=== PATIENT | female | born 1960 | race Caucasian/White ===

== ENCOUNTER 2024-12-04 16:29 | Emergency (ER) | payer OTHER, SELFPAY ==
--- OUTSIDE RECORDS SUMMARY | 2024-12-04 16:33 | XMS_ITS | Continuity of Care Document ---
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 Medication Details Route Status Patient Instructions Prescription Expires Prescription Number Last Dispense Date Ordering Provider Order Date Order Qty Source ALLOPURINOL (allopurino l), 300 MG, TABLET, ORAL, [facility], 500 ea. BOTTLE Active [id number] 2023 90 Pharmac y Data Transac tion Service Facilit y AMPHETAMINE SALT COMBO (DEXTROAMPH ETAMINE/AMP HETAMINE), 20 MG, TABLET, ORAL, LONG, 100 ea. BOTTLE Cancele d [id number] : 2023 0 Pharmac y Data Transac tion Service Facilit y AMPHETAMINE SALT COMBO (DEXTROAMPH ETAMINE/AMP HETAMINE), 20 MG, TABLET, ORAL, LONG, 100 ea. BOTTLE Active [id number] 2023 30 Pharmac y Data Transac tion Service Facilit y AMPHETAMINE SALT COMBO (DEXTROAMPH ETAMINE/AMP HETAMINE), 5 MG, TABLET, ORAL, LONG, 100 ea. BOTTLE Active [id number] 2023 120 Pharmac y Data Transac tion Service Facilit y CLONAZEPAM (clonazepam ), 0.5 MG, TABLET, ORAL, [facility], 100 ea. BOTTLE Active [id number] 2023 60 Pharmac y Data Transac tion Service Facilit y CLONAZEPAM (clonazepam ), 0.5 MG, TABLET, ORAL, [facility], 100 ea. BOTTLE Active [id number] 2023 60 Pharmac y Data Transac tion Service Facilit y CLONAZEPAM (clonazepam ), 0.5 MG, TABLET, ORAL, [facility], 1000 ea. BOTTLE Active [id number] 2023 60 Pharmac y Data Transac tion Service Facilit y CLONAZEPAM (CLONAZEPAM ), 0.5MG, TABLET, ORAL, [employer] [place], 500 ea. BOTTLE Active [id number] 2023 60 Pharmac y Data Transac tion Service Facilit y CLONAZEPAM (CLONAZEPAM ), 0.5MG, TABLET, ORAL, [employer] [place], 500 ea. BOTTLE Active [id number] 2023 60 Pharmac y Data Transac tion Service Facilit y CLONAZEPAM (CLONAZEPAM ), 0.5MG, TABLET, ORAL, [employer] [place], 500 ea. BOTTLE Active [id number] 3 2022 60 Pharmac y Data Transac tion Service Facilit y DESVENLAFAX INE SUCCINATE ER (desvenlafa xine succinate), 100 MG, TAB ER 24H, ORAL, [facility] IKMA, 90 ea. BOTTLE Active [id number] 2023 90 Pharmac y Data Transac tion Service Facilit y DESVENLAFAX INE SUCCINATE ER (desvenlafa xine succinate), 100 MG, TAB ER 24H, ORAL, [facility]/ IKMA, 90 ea. BOTTLE Active [id number] 4 2023 90 Pharmac y Data Transac tion Service Facilit y FLUOXETINE HCL (FLUOXETINE HCL), 20MG, CAPSULE, ORAL, [employer], 100 ea. BOTTLE Cancele d [id number] : 2023 0 Pharmac y Data Transac tion Service Facilit y FLUOXETINE HCL (FLUOXETINE HCL), 20MG, CAPSULE, ORAL, [employer], 100 ea. BOTTLE Active [id number] 2023 10 Pharmac y Data Transac tion Service Facilit y FLUOXETINE HCL (FLUOXETINE HCL), 20MG, CAPSULE, ORAL, [employer], 100 ea. BOTTLE Cancele d [id number] : 2023 0 Pharmac y Data Transac tion Service Facilit y FLUOXETINE HCL (FLUOXETINE HCL), 40MG, CAPSULE, ORAL, [employer] [place], 100 ea. BOTTLE Active [id number] 4 2023 180 Pharmac y Data Transac tion Service Facilit y FLUOXETINE HCL (FLUOXETINE HCL), 40MG, CAPSULE, ORAL, [employer] [place], 100 ea. BOTTLE Active [id number] 4 2023 180 Pharmac y Data Transac tion Service Facilit y METOPROLOL SUCCINATE (metoprolol succinate), 25 MG, TAB ER 24H, ORAL, [employer]/TEV A, 100 ea. 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 Social History Type Response Date Comment [facility] e This section is an empty social history section. [employer]
--- OUTSIDE RECORDS SUMMARY | 2024-12-04 16:33 | XMS_ITS | Clinical Summary ---
Author Organization [facility] Address [place], [place] [address] Care Team Providers Care Art Objects Repairer Name Role Phone Zuleyma Villanueva DO Primary Care Provider [phone] February BASKET SORTER Unavailable Allergies Active Allergy Reactions Criticality Noted Date Comments Prochlorperazine Anxiety High 02/25/2017 feels like I am jumping out of my skin. Medications OneTouch Verio test strips stripIndications: Type 2 diabetes mellitus without complication, without long-term current use of insulin (HC) One times daily. 200 Each 12/10/19 22 Active CPAPIndications:O bstructive sleep apnea syndrome CPAP (E0601) machine for home use at pressure: 16 cmH2O, Choice of mask (A7030 or A7034) w/full face cushion (A7031) x1/mo, nasal cushion (A7032) x2/mo, or nasal pillows (A7033) x 2/mo; Heated humidifier (E0562) x 1/5 year, Humidifier chamber (A7046) x 1/6mo, Chinstrap (A7036) x 1/6mo, Heated tubing (A4604) x 1/3mo, Headgear (A7035) x 1/6mo, Filters: Disposable (A7038) x 2pk/1mo & Reusable (A7039) x 1pk/6mo; Length of Need: 99 months; Frequency of use: Daily DME: [employer] PLEASE CHANGE PRESSURE TO 16 1 Each 06/21/20 24 Active allopurinoL (ZYLOPRIM) 300 mg tabletIndications :Gout, unspecified cause, unspecified chronicity, unspecified site Take 1 Tablet (300 mg) by mouth once daily. 90 Tablet 3 06/29/20 24 Active nicotine 21 mg/24 hr (NICODERM; HABITROL) 21 mg/24 hr patchIndications: Tobacco dependence with current use Apply 1 Patch on dry, clean, hairless skin once daily. 14 Patch 3 06/29/20 24 Active clonazePAM (KLONOPIN) 0.5 mg tabletIndications :PTSD (post-traumatic stress disorder),MING (generalized anxiety disorder) Take 1-2 Tablets (0.5-1 mg) by mouth 2 times daily if needed for Anxiety. 90 Tablet 1 11/11/20 24 Active Vyvanse 50 mg capsuleIndication s:Attention deficit hyperactivity disorder (ADHD), unspecified ADHD type Take 1 Capsule (50 mg) by mouth once daily in the morning. 31 Capsule 11/23/19 25 Active Vyvanse 40 mg capsuleIndication s:Attention deficit hyperactivity disorder (ADHD), unspecified ADHD type Take 1 Capsule (40 mg) by mouth once daily in the morning. 31 Capsule 10/12/20 24 025 Discontin ued(*Sandi ent states no longer taking) clonazePAM (KLONOPIN) 0.5 mg tabletIndications :Severe episode of recurrent major depressive disorder, without psychotic features (HC) Take 1-2 Tablets (0.5-1 mg) by mouth at bedtime. 60 Tablet 2 10/13/20 24 024 Discontin ued(*Medi cation adjustmen t) lisdexamfetamine (Vyvanse) 50 mg capsuleIndication s:Attention deficit hyperactivity disorder (ADHD), unspecified ADHD type Take 1 Capsule (50 mg) by mouth once daily in the morning. 31 Capsule 11/11/20 24 025 Discontin ued(*Medi cation adjustmen t) Active Problems Problem Noted Date Diagnosed Date Stage 3b chronic kidney disease 06/01/2024 Dermatochalasis of both lower eyelids 02/05/2022 Hyperopia of both eyes with astigmatism and pres byopia 02/05/2022 Controlled type 2 diabetes m ellitus without complication, without long-term current use of insulin 02/05/2022 Gout 01/28/2022 Severe recurrent major depre ssion without psychotic features 09/26/2020 MING (generalized anxiety disorder) 09/26/2020 PTSD (post-traumatic stress disorder) 09/26/2020 Major depression, recurrent 10/27/2018 Chronic pain associated with significant psychosocial dysfunction 10/27/2018 Lightheaded 02/13/2018 Overview (02/13/2018): From hospitalization in [place]: The patient complained of lightheadedness which was initially thought to be potentially related to medications but with time appeared to have some psychosomatic component. She complained less about this overtime and with an improvement in her mood. Chronic sinusitis of both maxillary sinuses 06/2018 Sarcoidosis 12/03/2017 Insomnia 12/03/2017 DODIE (obstructive sleep apnea) 12/03/2017 Hypertension 12/03/2017 Overview (02/13/2018): Very salt sensitive- blood pressure up with more salt Obesity 12/03/2017 Diabetes mellitus, type 2 10/31/2017 Attention deficit disorder without mention of hy peractivity 06/24/2009 Major depressive disorder, recurrent episode, mo derate Resolved Problems Problem Noted Date Diagnosed Date Resolved Date CKD (chronic kidney disease) stage 3, GFR 30-59 ml/min 01/28/2022 06/01/2024 Overview (01/28/2022): Nephrology Major depression, recurrent 05/11/2018 05/11/2018 Major depressive disorder, recurrent 12/03/2017 05/11/2018 GERD (gastroesophageal reflux disease) 12/03/2017 06/08/2021 Depression 11/01/2016 05/11/2018 Anxiety state, unspecified 06/09/2009 0 06/08/2021 Overview (06/09/2009): Evaluate ADD pattern Encounters Date Type Department Care Team Description 12/01/2024 10:30 AM CDA TEACHER Office Visit [facility] [address] [facility] [address] [place] [address] Elis Olea NP Consult; Medication Management 12/01/2024 Travel 11/26/2024 Telephone [facility] [address] [place] [phone] Checo February Noel, BASKET SORTER Questions 11/26/2024 Telephone [facility] [address] [place] [address] Checo February Noel, BASKET SORTER Error-please disregard 11/26/2024 Telephone [facility] [address] [place] [address] Zuleyma Villanueva, DO Questions (blood pressure cuff readings) 11/23/2024 3:30 PM CDA TEACHER Telemedicine [facility] [address] [facility] [address] [place] [address] Checo February Noel, BASKET SORTER Follow Up 11/19/2024 Telephone [facility] [address] [facility] [address] [place] [address] Checo February Noel, BASKET SORTER Error-please disregard 11/18/2024 Telephone [facility] [address] [facility] [address] [place] [address] Elis Olea, BASKET SORTER Concerns 11/16/2024 Telephone [facility] [address] [facility] [place] [address] [facility] [address] [place] [phone] Checo February Noel, BASKET SORTER Prior Authorization (lisdexamfetamine (Vyvanse) 50 mg capsule-PA NOT NEEDED) 11/16/2024 Telephone [facility] [address] [place] [address] Kia Coreas, JUANI Testing 11/12/2024 Telephone [facility] [address] [place] [address] Zuleyma Villanueva, Concerns 11/11/2024 4:30 PM CDA TEACHER Telemedicine [facility] [address] [facility] [address] [place] [address] Checo February Noel, BASKET SORTER Medication Management; Telehealth ([place]) 11/02/2024 Telephone [facility] [address] [place] [address] Zuleyma Villanueva, Referral ([place]) 11/02/[address]24 [address] [facility] [address] [facility] [place] [address] [place] [phone] Tawana Kessler, BASKET SORTER Appointment (Follow Up ) 10/26/2024 Telephone [facility] [place] [place] [address] [place] [address] Yris Bowman MD Form (PHYSICIAN ORDER) 10/20/2024 3:00 PM CDA TEACHER Office Visit [facility] [place] [place] [address] [place] [address] Yris Bowman MD Back Pain (Back, neck and shoulder pain x years, would like physical therapy ); Consult (Itching in hands and feet, loss of sensation, was told it could be from nerve damage and needs a referral to neurology ); Immunization/Injection 10/20/2024 Telephone [facility] [place] [address] [place] [phone] Jose Elias Lyon MD NEURO REFERRAL 10/20/2024 Travel 10/18/2024 Telephone [facility] [address] [place] [address] Zuleyma Villanueva, Referral (Chronic pain and neurology) 10/12/2024 3:30 PM CDA TEACHER Telemedicine [facility] [address] [facility] [address] [place] [phone] Tawana Kessler, AYDIN Medication Management; Telehealth ([place]) 10/12/2024 Telephone [facility] [address] [facility] [address] [place] [address] Elis Olea NP Appointment 10/11/2024 Travel 10/11/2024 Telephone [facility] [address] [place] [address] Zuleyma Villanueva, DO Questions (PENSION FUND MANAGER) 09/08/2024 Telephone [facility] [place] [phone] [place] [address] Kia Coreas PA Appointment 09/06/2024 Telephone [facility] [place] [address] [place] [phone] Kia Coreas PA Appointment (Appointment was scheduled) from Last 3 Months Immunizations Name Administration Dates Next Due COVID-19 VACCINE SPIKEVAX (M ODERNA 50MCG/0.5ML) 12YO+ PFS 10/20/2024 COVID-19 vaccine (Pfizer-Bio NTech 30mcg/0.3mL) 12YO+ BIVALENT PF, MDV 02/12/2023 INFLUENZA, IIV3 PF (AGE >= 6 MO) 10/20/2024 Influenza, IIV3 (Age 6-35 mos) 10/31/2009 Influenza, IIV3 (Age >=3 years) 10/02/2011,01/11 Influenza, IIV4 02/12/2023, 0,11/30/2017,2015,08/23/2014 Pneumococcal Conj 20-valent (Prevnar 20) 05/21/2023 Pneumococcal Poly,23-Valent (Pneumovax) 11/02/2016 Td (Age >=7 Years) 09/06/2020 Tdap 01/11/2008 Tuberculin (PPD) 12/19/2017 Zoster (Zostavax-ZVL, live) 12/15/2014 Family History Medical History Relation Name Comments Anxiety disorder Other Depression Other All seven of he r siblings have depression and anxiety. Cancer-breast Sister No Known Problems Son Relation Name Status Comments Other Alive Sister Son Alive Social History Tobacco Use Types Packs/Day Years Used Date Smoking Tobacco: Every Day Cigarettes 0.3 20.6 Started: 03/16/1998; Last attempted to quit: 03/16/2018 Smokeless Tobacco: Never Tobacco Cessation:Ready to Q uit: Not Asked; Counseling Given: Not Answered Alcohol Use Standard Drinks/Week Comments No 0 (1 standard drink = 0.6 oz pur e alcohol) PHQ-2 Answer Date Recorded PHQ-2 TOTAL SCORE 1 10/11/2024 Social Connections Answer Date Recorded Do you often feel lonely or isolated from those around you? 4 06/01/2024 Financial Resource Strain Answer Date R ecorded Difficulty of Paying Living Expenses 3 06/01/2024 Difficulty of Paying Living Expenses Not on file 06/01/2024 Food Insecurity Answer Date Recorded Do you worry your food will run out before you are able to buy more? 2 06/01/2024 Transportation Needs Answer Date Record ed Does lack of transportation keep you from medica l appointments? 1 06/01/2024 Does lack of transportation keep you from work, meetings or getting things that you need? 1 06/01/2024 Housing Stability Answer Date Recorded What is your housing situation today? 1 06/01/2024 Utilities Answer Date Recorded Do you have trouble paying f or utilities (for example, heat, electricity, water, phone)? 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 Not on file Not on thais e Not on file Obstetrics History Last Filed Vital Signs Vital Sign Reading Time Taken Comments Blood Pressure 122/80 12/01/2024 10:41 AM CDA TEACHER Pulse 100 12/01/2024 10:41 AM CDA TEACHER Temperature 36.7 C (98.1 F) 05/17/2021 10:33 AM CDT Respiratory Rate 18 02/03/2018 8:00 AM CDT Oxygen Saturation 100% 10/20/2024 2:55 PM CDA TEACHER Inhaled Oxygen Concentration - - Weight 96 kg (211 lb 9.6 oz) 12/01/2024 10:41 AM CDA TEACHER shoes Height 174 cm (5' 8.5) 06/29/2024 10:22 AM CDT Body Mass Index 31.7 06/29/2024 10:22 AM CDT Plan of Treatment Upcoming Encounters Date Type Department Care Team (Late st Contact Info) Description 12/09/2024 8:30 AM CDA TEACHER Telemedicine [facility] [address] [place] [phone] Tawana Kessler D, BASKET SORTER [address] [place], [place] [phone] 12/28/2024 10:10 AM CDA TEACHER Office Visit [facility] [address] [place] [address] Zuleyma Villanueva DO [address] [place] [address] 01/11/2025 1:00 PM CDA TEACHER Office Visit [facility] [place] [facility] [address] [place] [address] Jose Elias Lyon MD [address] [place] [address] 11/29/2025 12:30 PM CDA TEACHER Office Visit [facility] [address] [phone] Elis Olea NP [address] [phone] Health Maintenance Due Date Last Done Comments HIV for age 15-65 1975 Fecal testing sDNA-FIT ([place] guard) for age 45-75 2005 Zoster (shingles) series for age 50+ (2 of 3) 02/09/2015 12/15/2014 RSV vaccine for adults or (1 - Risk 60-74 years 1-dose series) 2020 Mammogram for age 45-75 10/07/2023 10/07/20 22, 06/08/2021, 10/22/2017 Pap test for age 21-65 05/17/2024 05/17/2021, 2020 BMI (ht and wt on same day) for age 18+ 06/29/2025 06/29/2024, 06/27/2023, 06/08/2021, Additional history exists Depression screening for age 12+ 10/12/2025 10/12/2024, 10/12/2024, 10/11/2024, Additional history exists Lipids for age 45-75 10/20/2029 10/20/2024, 06/01/2024, 02/05/2023, Additional history exists Tetanus booster 09/06/2030 09/06/2020, 01/11/2008 Tdap Completed 01/11/2008 Hepatitis C screening for ag e 18-79 Completed 09/06/2020 Pneumococcal series for age 50+ Completed 3, 11/02/2016 COVID-19 vaccine series Completed 10/20/20, 02/12/2023, 02/28/2021, Additional history exists Influenza for age 50-64 Completed 10/20/20, 02/12/2023, 09/06/2020, Additional history exists Goals Goal Patient Goal Type Associated Problems Recent Progress Patient-Stated? Author BLOOD PRESSURE-MAINTA INS BP LESS THAN 130/80 Blood Pressure No Rj Graham MD BLOOD PRESSURE - MAINTAINS BP less than 140/90 Blood Pressure No Rj Graham MD Procedures Procedure Name Priority Date/Time Associated Diagnosis Comments CREATININE Routine 10/20/2024 3:34 PM CDA TEACHER Stage 3b chronic kidney disease (HC) FOLIC ACID Routine 10/20/2024 3:34 PM CDA TEACHER Low folic acid LIPID PANEL W REFLEX MEASURED LDL Routine 10/20/2024 3:33 PM CDA TEACHER Mixed hyperlipidemia XR MAMMO BEAU BILAT DIAG Routine 10/07/2022 2:57 PM CDA TEACHER Mastalgia Encounter for screening mammogram for malignant neoplasm of breast PRODUCTION FLOATER THIN PREP PAP SCREEN IMAGED Routine 05/17/2021 11:04 AM CDT Screening for cervical cancer ANTI HCV Routine 09/06/2020 1:47 PM CDT Need for hepatitis C screening test from Last 3 Months or Most Recently Relevant to Health Maintenance Results * CREATININE (10/20/2024 3:34 PM CDA TEACHER) CREATININE 0.99 0.50 - 1.05 mg/dL [facility] EGFR 64 > OR = 60 mL/min/1.73 m2 [facility] Blood BLOOD SPECIMEN / Unknown 10/20/2024 3:34 PM CDA TEACHER 10/20/2024 3:34 PM CDA TEACHER Yris Bowman MD CHEMISTRY Final R esult Performing Organization Address City/[facility]/ZIP Co de Phone Number [facility] [address] [place] [address], [place] [phone] [facility] [address] [place] [address] * FOLIC ACID (10/20/2024 3:34 PM CDA TEACHER) Pathologist [facility] FOLATE, SERUM 5.9 ng/mL [facility] Comment: Reference Range Low: <3.4 Borderline: 3.4-5.4 Normal: >5.4 Blood BLOOD SPECIMEN / Unknown 10/20/2024 3:34 PM CDA TEACHER 10/20/2024 3:34 PM CDA TEACHER Yris Bowman MD CHEMISTRY Final R esult Performing Organization Address [facility] Co de Phone Number [facility] [address] [place] [address], [place] [phone] [facility] [address] [place] [address] * (ABNORMAL) LIPID PANEL W REFLEX MEASURED LDL (10/20/2024 3:33 PM CDA TEACHER) CHOLESTEROL, TOTAL 208(H) <200 mg/dL [facility] HDL CHOLESTEROL 69 > OR = 50 mg/dL [facility] TRIGLYCERIDES 66 <150 mg/dL [facility] LDL-CHOLESTEROL 123(H) mg/dL (calc) [facility] Comment: Reference range: <100 Desirable range <100 mg/dL for primary prevention; <70 mg/dL for patients with CHD or diabetic patients with > or = 2 CHD risk factors. LDL-C is now calculated using the Olaf-Dennis calculation, which is a validated novel method providing better accuracy than the Friedewald equation in the estimation of LDL-C. Olaf SS et al. DESIREE. 2013;310(19): 0422-6083 (http://education.mySkin/faq/IQH181) CHOL/HDLC RATIO 3.0 <5.0 (calc) [facility] NON HDL CHOLESTEROL 139(H) <130 mg/dL (calc) [facility] Comment: For patients with diabetes plus 1 major ASCVD risk factor, treating to a non-HDL-C goal of <100 mg/dL (LDL-C of <70 mg/dL) is considered a therapeutic option. Blood BLOOD SPECIMEN / Unknown 10/20/2024 3:33 PM CDA TEACHER 10/20/2024 3:33 PM CDA TEACHER Zuleyma Villanueva DO CHEMISTRY Final Result [facility] [address] [place] [address], [facility] [address] [place] [address] * XR MAMMO BEAU BILAT DIAG (10/07/2022 2:57 PM CDA TEACHER) Anatomical Region Laterality Modality BREASTS, Breast Left, Breast Right Bilateral Mammography 10/07/2022 3:10 PM CDA TEACHER Impressions 10/08/2022 11:51 AM CDA TEACHER Normal BILATERAL mammograms. No findings concerning for malignancy. RECOMMENDATION: Annual BILATERAL screening mammography. BI-RADS Category 1: Negative. Results and recommendations discussed with the patient. Dictated by: Kamron Ramirez MD @10/07/2022 3:10:33 PM CRL:rcd PATIENTS: You will also receive a letter with your examination results in an easy to read format. If you have questions about your results, please contact your referring provider. Narrative 10/08/2022 11:51 AM CDA TEACHER For Patients: As a result of the 21st Century Cures Act, medical imaging exams and procedure reports are released immediately into your electronic medical record. You may view this report before your referring provider. If you have questions, please contact your health care provider. BILATERAL DIGITAL DIAGNOSTIC MAMMOGRAM WITH COMPUTER-AIDED DETECTION AND TOMOSYNTHESIS, 10/07/2022 CLINICAL HISTORY: RIGHT breast pain. COMPARISON: 06/08/2021. TECHNIQUE: Digital BILATERAL mammogram in four projections with computer-aided detection and tomosynthesis. BREAST COMPOSITION: There are scattered areas of fibroglandular density. FINDINGS: 3D CC/MLO BILATERAL mammograms submitted. No suspicious masses are present. No adenopathy or architectural distortion. No suspicious calcifications. us Zuleyma Villanueva DO MAMMO Final Result * PRODUCTION FLOATER THIN PREP PAP SCREEN IMAGED [[id number]] (05/17/2021 11:04 AM CDT) Case Report Gynecologic Cytology Report Case: [id number] Authorizing Provider: Zuleyma Villanueva DO Collected: 05/17/2021 1104 Ordering Location: [facility] Received: 05/17/2021 1109 Clinic First Screen: Baccam, Minie Pathologist: Consuelo De La Paz MD Specimen: PRODUCTION FLOATER ThinPrep Vial Screening, Cervical 05/25/2021 4:59 PM CDT [facility] INTERPRETATION/ RESULT NEGATIVE FOR INTRAEPITHELIAL LESION OR MALIGNANCY (NIL) (none) 05/25/2021 4:59 PM CDT [facility] R NON-NEOPLASTIC FINDING(S) Reactive cellular changes associated with inflammation/repa ir 05/25/2021 4:59 PM CDT [facility] SPECIMEN ADEQUACY Satisfactory for evaluation No endocervical component seen 05/25/2021 4:59 PM CDT [facility] HPV REQUEST HPV and PAP 05/25/2021 4:59 PM CDT [facility] Date of LMP N/A 05/25/2021 4:59 PM CDT [facility] Last Pap Date Unknown 05/25/2021 4:59 PM CDT [facility] Last Pap Result First Pap/Unknown 4:59 PM CDT [facility] Abnormal Pap or Braham Bx in last 5 years No 05/25/2021 4:59 PM CDT [facility] Menstrual Status Postmenopausal 05/25/2021 4:59 PM CDT [facility] Braham Bx Done Today No 05/25/2021 4:59 PM CDT [facility] Additional Information None given 05/25/2021 4:59 PM CDT [facility] Comment: Cytology is screened at [facility] - [address], [place] [address] and [facility] - [address], [place] [address] and [facility] - [address] [place] [address] Interpreted at [facility] - [address], [place] [address] Automated Review Successful 05/25/2021 4:59 PM CDT [facility] Comment:Specimen processed s uccessfully by automated power plant manager device, ThinPrep Imaging System, [employer] ANCILLARY TESTING PRODUCTION FLOATER HPV Ordered, Please see separate report 05/25/2021 4:59 PM CDT [facility] Note The pap test is a screening technique, not a diagnostic procedure. It is used primarily to screen for squamous cancers and precursor lesions. Published studies have shown that it is subject to both false negative and false positive results. The pap test should not be used as the sole means to diagnose or exclude pre-malignant and malignant lesions. 05/25/2021 4:59 PM CDT [facility] Other (Cervical) Non-Blood / Unknown 05/17/2021 11:04 AM CDT 05/17/2021 11:09 AM CDT us Zuleyma Villanueva DO PATHOLOGY/CYTOLOGY Final Resu lt [facility] [address] [place] [address], [place] * ANTI HCV (09/06/2020 1:47 PM CDT) HEPATITIS C ANTIBODY Non-React susan Non-React susan 09/06/2020 8:14 PM CDT [facility] Comment:Antibodies to HCV no t detected; does not exclude the possibility of exposure to HCV. Blood BLOOD SPECIMEN / Unknown Butterfly / Unknown 09/06/2020 1:47 PM CDT 09/06/2020 1:47 PM CDT us Roshan Frank MD SEND OUTS Final Result [facility] [address] [place] [phone], from Last 3 Months or Most Recently Relevant to Health Maintenance Insurance MEDICARE [place] ONLY MEDICARE PART B HB ONLY FOR LIFE MEDICARE PART A HB ONLY MEDICARE PART B HB ONLY FOR LIFE Advance Directives * Full Code (Latest Code Status on File) Date Activated Date Inactivated Comments 01/15/2018 10:03 PM 02/03/2018 6:32 PM Question Answer Comments Code Status Discussion: Discussed * Full Code Date Activated Date Inactivated Comments 11/29/2017 3:07 PM 12/19/2017 4:43 PM Discussed Adv anced Directives. She would like a copy of it. Question Answer Comments Code Status Discussion: Discussed Care Teams Art Objects Repairer Relationship Specialty Start Date End Date Zuleyma Villanueva DO [address] [place] [address] PCP - General Family Practice 09/26/21 [place] Tawana AYDIN Cohen [address] [place] [address] Nurse Practitioner - Mental Health 05/02/22
--- OUTSIDE RECORDS SUMMARY | 2024-12-04 16:33 | XMS_ITS | Referral Summary ---
Author Organization [facility] Address [address] [place] [address] Care Team Providers Care Supervisor Intelligence Analyst Name Role Phone Hannah, Md Primary Care Provider Rj Ruffin MD Unavailable Unavailab le Allergies Active Allergy Reactions Criticality Noted Date Comments Prochlorperazine Anxiety High 02/25/2017 feels like I am jumping out of my skin. Medications pantoprazole (PROTONIX) 40 mg oral delayed release tablet TK 1 T PO BID B MEALS 0 01/05/2019 Active metFORMIN ER (GLUCOPHAGE XR) 500 mg oral extended release tablet 24 HR TK 4 TS PO HS 0 02/22/2019 Activ e Cyanocobalamin 1,000 mcg oral tablet Take 1,000 mcg by mouth. 12/20/2017 Active Cholecalciferol , Vitamin D3, 5,000 unit oral tablet Take 5,000 Units by mouth. 02/03/2018 Active pantoprazole (PROTONIX) 40 mg oral delayed release tablet Take 40 mg by mouth. 12/20/2017 Active mirtazapine (REMERON) 15 mg oral tablet Take 1 tab by mouth every HS 03/16/2019 Active metoprolol succinate, XL, (TOPROL XL) 50 mg oral extended release tablet 24 HR Take 25 mg by mouth. 10/06/2018 Active DULoxetine (CYMBALTA) 60 mg oral delayed release capsule Take 1 capsule daily with 30 mg of Cymbalta total dose 90 mg 03/16/2019 Active diazePAM (VALIUM) 5 mg oral tablet Take 2.5-5 mg by mouth. 12/15/2018 Active lisinopril (PRINIVIL;ZESTR IL) 10 mg oral tablet Take 2.5 tablets by mouth Daily. 10/17/2017 Active furosemide (LASIX) 20 mg oral tablet Take 1 tablet by mouth. 09/15/2017 Active DULoxetine (CYMBALTA) 30 mg oral delayed release capsule Take 30 mg by mouth once daily. Take with 60 mg tablet for total of 90mg Active Active Problems Problem Noted Date Diagnosed Date Major depressive disorder, r ecurrent, severe without psychotic features PTSD (post-traumatic stress disorder) Generalized anxiety disorder Immunizations Name Administration Dates Next Due Pfizer 12+ Yrs Monovalent COVID Vaccine (purple cap) 02/28/2021,02/07/2021 Social History Tobacco Use Types Packs/Day Years Used Date Smoking Tobacco: Never Smokeless Tobacco: Never Alcohol Use Standard Drinks/Week Comments Not Currently 0 (1 standard drink = 0.6 oz pur e alcohol) Comments Unknown Sex and Gender Information Value Date Recorded Sex Assigned at Not on file Legal Sex Female 6:14 AM CDT Gender Identity Not on file Sexual Orientation Not on file Last Filed Vital Signs Vital Sign Reading Time Taken Comments Blood Pressure 154/88 03/17/2019 6:00 PM CDT Pulse 98 03/17/2019 6:00 PM CDT Temperature - - Respiratory Rate 20 03/17/2019 6:00 PM CDT Oxygen Saturation 98% 03/17/2019 5:30 PM CDT Inhaled Oxygen Concentration - - Weight - - Height - - Body Mass Index - - Plan of Treatment Not on file Procedures Procedure Name Priority Date/Time Associated Diagnosis Comments BASIC METAB PROFILE STAT 03/17/2019 4 :31 PM CDT from Last 3 Months or Most Recently Relevant to Health Maintenance Results * (ABNORMAL) Basic Metabolic Profile (03/17/2019 4:31 PM CDT) [facility] Sodium 139 136 - 145 mmol/L 03/17/2019 5:06 PM CDT [facility] Potassium 3.8 3.5 - 5.1 mmol/L 03/17/2019 5:06 PM T [facility] Chloride 104 98 - 112 mmol/L 03/17/2019 5:06 PM T [facility] Carbon Dioxide 30 21 - 32 mmol/L 03/17/2019 5:06 PM T [facility] BUN (Urea Nitro) 16 7 - 24 mg/dL 03/17/2019 5:06 PM T [facility] Creatinine 1.01 0.55 - 1.02 mg/dL 03/17/2019 5:06 PM T [facility] Est GFR (CKD-EPI) 56(L) >60 mL/min 03/17/2019 5:06 PM T [facility] EST GFR IF AM >60 >60 mL/min 03/17/2019 5:06 PM T [facility] Glucose 110(H) 74 - 106 mg/dL 03/17/2019 5:06 PM T [facility] Calcium, Serum 9.3 8.5 - 10.1 mg/dL 03/17/2019 5:06 PM T [facility] Anion Gap 5.0 0.0 - 15.0 mmol/L 03/17/2019 5:[address] [facility] Blood 03/17/2019 4:31 PM CDT 03/17/2019 4:42 PM CDT Izabella Martinez PA-C CHEMISTRY ORDERABLE Final Result [facility] [address] [place] [address] from Last 3 Months or Most Recently Relevant to Health Maintenance Insurance [facility] [employer]OYEE [facility] [employer] [facility] [employer] Care Teams Supervisor Intelligence Analyst Relationship Specialty Start Date End Date Unknown, NO ADDRESS/PHONE/FAX AFFILIATED PCP - General 03/17/19 Rj Graham MD PCP - Engraver Block Internal Medicine 03/17/19
--- OUTSIDE RECORDS SUMMARY | 2024-12-04 16:33 | XMS_ITS | Continuity of Care Document ---
Author Name [facility] User [email or web address] Address Unknown Organization Unknown Address Unknown Encounters FILTER APPLIED:Only known Encounters with Admission Date within the last 5 years Encounter Location Admission Discharge Billing Code Before School [facility] [id number] [facility] [id number]
--- OUTSIDE RECORDS SUMMARY | 2024-12-04 16:33 | XMS_ITS | Clinical Summary ---
Author Organization [facility] Address [address] [place] [address] Care Team Providers Care Plastic Card Grader Cardroom Name Role Phone Hannah, Md Primary Care [...] Mass Index - - Plan of Treatment Health Maintenance Due Date Last Done Comments Colonoscopy 1960 Eye Exam 1960 Hepatitis C Screening 1960 HgbA1C 1960 Lipid Screening 1960 Mammogram Screening 1960 Pap Smear 1960 Anxiety Follow-Up (MING-7) 1961 Depression Follow-Up (PHQ-9) 1961 Yearly Review of HCD 2010 Zoster Vaccine (2 of 3) 02/09/2015 12/15/2014 Pneumococcal <65 (2 of 2 - PCV) 11/02/2017 6 Creatinine 03/17/2020 03/17/2019 COVID-19 Vaccine (3 - 2023-2 5 season) 2024 02/28/2021, 02/07/2021 Influenza Vaccine (#1) 2024 , 11/30/2017, 08/30/2016, Additional history exists Adult Tetanus Booster 09/06/2030 09/06/2020, 008 RSV Vaccines (1 - 1-dose 75+ series) 2035 Procedures Procedure Name Priority Date/Time Associated Diagnosis Comments BASIC METAB PROFILE STAT 03/17/2019 4 :31 PM CDT from Last 3 Months or Most Recently Relevant to Health Maintenance Results * (ABNORMAL) Basic Metabolic Profile (03/17/2019 4:31 PM CDT) Sodium 139 136 - 145 mmol/L 03/17/2019 5:06 PM T [facility] Potassium 3.8 3.5 - 5.1 mmol/L 03/17/2019 5:06 PM [facility] Chloride 104 98 - 112 mmol/L 03/17/2019 5:06 PM [facility] Carbon Dioxide 30 21 - 32 mmol/L 03/17/2019 5:06 PM [facility] BUN (Urea Nitro) 16 7 - 24 mg/dL 03/17/2019 5:06 PM [facility] Creatinine 1.01 0.55 - 1.02 mg/dL 03/17/2019 5:06 PM [facility] Est GFR (CKD-EPI) 56(L) >60 mL/min 03/17/2019 5:06 PM [facility] EST GFR IF AM >60 >60 mL/min 03/17/2019 5:06 PM [facility] Glucose 110(H) 74 - 106 mg/dL 03/17/2019 5:06 PM [facility] Calcium, Serum 9.3 8.5 - 10.1 mg/dL 03/17/2019 5:06 PM [facility] Anion Gap 5.0 0.0 - 15.0 mmol/L 03/17/2019 5:06 PM [facility] Blood 03/17/2019 4:31 PM CDT 03/17/2019 4:42 PM CDT Izabella Martinez PA-C CHEMISTRY ORDERABLE Final Result [facility] [address] [place] [address] from Last 3 Months or Most Recently Relevant to Health Maintenance Insurance [facility] 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
--- OUTSIDE RECORDS SUMMARY | 2024-12-04 16:34 | XMS_ITS | Encounter Summary ---
Author Organization [facility] Address [address], [place] [address] Care Team Providers Care Hide Measuring Machine Operator Name Role Phone Zuleyma Villanueva DO Primary Care Provider [phone] Encounter Details Date Type Department Care Team (Late st Contact Info) Description 11/19/2024 E-Visit Dedicated Specialty Scheduling [address] [place] [address] Mychart, [place] [address] Social History Tobacco Use Types Packs/Day Years Used Date Smoking Tobacco: Never Alcohol Use Standard Drinks/Week Comments No 0 (1 standard drink = 0.6 oz pur e alcohol) Sex and Gender Information Value Date Recorded Sex Assigned at Not on file Gender Identity Not on file Sexual Orientation Not on file documented as of this encounter Plan of Treatment Upcoming Encounters Date Type Department Care Team (Late st Contact Info) Description 12/06/2024 1:45 PM IP PARALEGAL Appointment Physical Therapy at [facility] Physical Therapy [facility] [address] [place], [place] [address] Justin Aquino, ROOF SLATER [address] [place] , [address] [place] 12/09/2024 1:45 PM IP PARALEGAL Appointment Physical Therapy at [facility] Physical Therapy [facility] [address] [place], [place] [address] Remy Briseno, ROOF SLATER [address] [place] [address] 12/14/2024 1:45 PM IP PARALEGAL Appointment Physical Therapy at [facility] Physical [facility] [address] [place] [address] Miguel Choi, PT [address] [place] [address] 12/17/2024 4:15 PM IP PARALEGAL Appointment Physical Therapy at [facility] Physical [facility] [address] [place] [address] Remy Briseno, ROOF SLATER [address] [facility] [address] [facility] [address] [place] [address] 12/20/2024 1:45 PM IP PARALEGAL Appointment Physical Therapy at [facility] Physical [facility] [address] [place] [address] John Jansen, ROOF SLATER [address] [address], [address] [place] [address] 12/23/2024 1:45 PM IP PARALEGAL Appointment Physical Therapy at [facility] Physical [facility] [address] [place] [address] Justin Aquino, ROOF SLATER [address], [address] [place] 12/23/2024 3:00 PM IP PARALEGAL [facility] [address] [place] [address] Clarke Ivory 12/27/2024 1:45 PM IP PARALEGAL Appointment Physical Therapy at [facility] Physical [facility] [address] [place] [address] Justin Aquino, ROOF SLATER [address], [address] [place] 12/30/2024 1:45 PM IP PARALEGAL Appointment Physical Therapy at [facility] Physical [address] [address] Justin Aquino, ROOF SLATER [address] [place] [address] 01/06/2025 1:45 PM IP PARALEGAL Appointment Physical Therapy at [facility] Physical [address] [address] Justin Aquino, ROOF SLATER [address] [place] [address] documented as of this encounter Visit Diagnoses Not on filedocumented in this encounter Care Teams Hide Measuring Machine Operator Relationship Specialty Start Date End Date Zuleyma Villanueva [place] [address] PCP - General Family Practice 11/22/24 documented as of this encounter
--- OUTSIDE RECORDS SUMMARY | 2024-12-04 16:34 | XMS_ITS | Encounter Summary ---
Author Organization [facility] Address [address] [address] Care Team Providers Care Measurement Operator Name Role Phone Unassigned, Provider Primary Care Provider Unava ilable Reason for Visit * Therapies (Routine) - New Request Specialty Diagnoses / Procedures Referred By Ulisses dotson Referred To Contact Physical Therapy Diagnoses Cervicalgia Other chronic pain Procedures [place] [address] [place] [address] [facility] Physical Therapy [address] [place] [address] Referral ID Status Reason Start Date Expiration Date V isits Requested Visits Authorized [id number] New Request 10/21/2024 01/20/[phone] Encounter Details Date Type Department Care Team (Late st Contact Info) Description 11/11/2024 2:15 PM WHEEL CLEANER Therapy Physical Therapy at [place] Physical [facility] [place] [address] [place] [address] Yessica Garcia, PT [address] [place] [address] Neck pain (Primary Dx) Social History Tobacco Use Types Packs/Day Years Used Date Smoking Tobacco: Never Alcohol Use Standard Drinks/Week Comments No 0 (1 standard drink = 0.6 oz pur e alcohol) Sex and Gender Information Value Date Recorded Sex Assigned at Not on file Gender Identity Not on file Sexual Orientation Not on file documented as of this encounter Progress Notes * Yessica Garcia, PT - 11/11/2024 2:15 PM CST 11/11/2024 Visit # 3 Protocol: Neck Start: 2:19 End: 3:04 (TRAIN ENGINEER Visit # 1 Subjective: Pt spent Claudia Zofia at [place] and received disheartening news which increased her stress/pain since. Pt had expected soreness after last session. Doesn't have band for shoulder ER ex. Cervical 11/11/2024 2:15 PM Cervical Set 1 Ext % Max 100 Set 1 Ext ROM 6-90 Set 1 Ext Wgt 150 Set 1 Ext Reps 30 Set 1 Ext Tul - Set 1 Ext Deep RPE 3 Set 2 Ext % Max 100 Set 2 Ext ROM 6-90 Set 2 Ext Wgt 165 Set 2 Ext Reps 30 Set 2 Ext Tul - Set 2 Ext Deep RPE 4 Objective Tests & Measures: 1x this week 10% increase C-ext 2nd set due to reps, RPE 1st set T-roto ROM: 35/35 Tests performed today (see reviewflowsheet for score and outcomes): : None Performed Today Warm Up: Movement Specific Training: Not Completed Treadmill: Minutes 5 Intensity 2.6mph ICE: na Lumbar 11/11/2024 2:15 PM Lumbar & Torso Left Rot % Max 60 Left Rot ROM 35 Left Rot Wgt 20 Left Rot Reps 20 Left Rot Zelda RPE 4 Right Rot % Max 60 Right Rot ROM 35 Right Rot Wgt 20 Right Rot Reps 20 Right Rot Deep RPE 4 Therapeutic Exercise (35 min): Patient performed isolated cervical extension exercise and auxillary exercises to improve muscle strength to increase tolerance for personal care tasks and household tasks Instructed/demonstrated/ performed shoulder ER w/ yellow band: cues for elbows at 90, not straight arms Neuromuscular Re-Education (10 min): Patient performed isolated torso rotation decrease substitution patterns and normalize movement patterns to increase tolerance for personal care tasks and household tasks. Cues for how to initiate motion w/ T-roto by pushing back w/ ipsilateral shoulder vs pulling forward w/ contralateral shoulder to engage correct muscles Auxillary 11/11/2024 2:15 PM Auxillary Rows Wgt Set 1 45 Rows Reps Set 1 30 Lats Wgt Set 1 45 Lats Reps Set 1 30 Shrug Wgt Set 1 8 Shrug Reps Set 1 30 Other yellow t-band given, hep emailed to pt Therapeutic Activities (0 min): Not performed today. Patient Education: Patient was instructed in pain/time scale and correlation of strength and function to increase their understanding of the benefits related to completing the [facility] Neck and Back Strengthening program Muscle soreness appropriate response to progressive strengthening Pt demonstrated understanding of delayed onset muscle soreness Assessment: Pt did well during session, demonstrated good effort. Receptive to instruction, feedback, to improve quality of motion w/ T-roto, auxiliary ex performed. Will benefit from advance in auxiliary weights. Goals: HEP/Independent Management: Demonstrate independence with HEP and self- management following each treatment session ADL's: Perform home management tasks with ease in 10 weeks. Ambulation: Ambulate for 30 minutes without increased symptoms in 10 weeks. Sports/Leisure: Return to prior level of leisure or recreational activities, including bike riding and working out at the [facility] without an increase in symptoms or limitations in 12 weeks HEP Access Code: [email or web address] PT Frequency/Duration: 0-2 x/week for 10-12 weeks for a total of 20-24 visits Barriers to Learning: none Rehab Prognosis: Excellent Precautions/Other information: Past Medical History: See EMR for details regarding past medical history, medications and drug allergies. History pertinent to therapy includes peripheral neuropathy, ongoing depression, ADHD, metabolic syndrome. Review of Systems: Denies fever, chills, night sweats, unrelenting night pain, unexplained weight loss, bowel/bladder changes, saddle sensation changes Anticipated visits to d/c: 15- Recommendations/Communication: if > 5 days: C-ext 100% T-roto 80% Advance auxiliary weights Total timed code min: 45 Total treatment time: 45 Yessica Garcia PT 11/11/2024, 3:09 PM L CLEANER documented in this encounter Plan of Treatment Upcoming Encounters Date Type Department Care Team (Late st Contact Info) Description 12/06/2024 1:45 PM WHEEL CLEANER Appointment Physical Therapy at [place] Physical Therapy [address] [address] Justin Aquino PTA [address], [address] [place] 12/09/2024 1:45 PM WHEEL CLEANER Appointment Physical Therapy at [place] Physical [facility] [address] [place] [address] Remy Briseno, TRAIN ENGINEER [address] [facility] [address] [place] [address] 12/14/2024 1:45 PM WHEEL CLEANER Appointment Physical Therapy at [place] Physical [facility] [address] [facility] [place] [address] Miguel Choi, PT [address] [place] [address] 12/17/2024 4:15 PM WHEEL CLEANER Appointment Physical Therapy at [place] Physical [facility] [address] [place] [address] Remy Briseno, TRAIN ENGINEER [address] [facility] [address] [place] [address] 12/20/2024 1:45 PM WHEEL CLEANER Appointment Physical Therapy at [place] Physical [facility] [address] [facility] [place] [address] John Jansen, TRAIN ENGINEER [address] [address], [address] [place] [address] 12/23/2024 1:45 PM WHEEL CLEANER Appointment Physical Therapy at [place] Physical [facility] [address] [facility] [place] [address] Justin Aquino, TRAIN ENGINEER [address], [address] [place] 12/23/2024 3:00 PM WHEEL CLEANER Appointment [facility] [address] [place] [address] Clarke Ivory 12/27/2024 1:45 PM WHEEL CLEANER Appointment Physical Therapy at [place] Physical [facility] [address] [place] [address] Justin Aquino, TRAIN ENGINEER [address], [address] [place] 12/30/2024 1:45 PM WHEEL CLEANER Appointment Physical Therapy at [place] Physical [place] [address] [place] [address] Justin Aquino, TRAIN ENGINEER [address] [place] 01/06/2025 1:45 PM WHEEL CLEANER Appointment Physical Therapy at [place] Physical [place] [address] [place] [address] Justin Aquino, TRAIN ENGINEER [address] documented as of this encounter Visit Diagnoses Diagnosis Neck pain- Primary Cervicalgia documented in this encounter Care Teams Measurement Operator Relationship Specialty Start Date End Date Unassigned, Provider [address] [place] [address] PCP - General 09/24/10 11/21/24 documented as of this encounter
--- OUTSIDE RECORDS SUMMARY | 2024-12-04 16:34 | XMS_ITS | Encounter Summary ---
Author Organization [facility] Address [address] [place] [address] Care Team Providers Care Box Truck Washer Name Role Phone Unassigned, Provider Primary Care Provider Unava ilable Reason for Visit * Reason Comments Neck Pain * Therapies (Routine) - New Request Specialty Diagnoses / Procedures Referred By Ulisses dotson Referred To Contact Physical Therapy Diagnoses Cervicalgia Other chronic pain Procedures [place] [address] [place] [address] [facility] Physical Therapy [address] [place] [place] [address] Referral ID Status Reason Start Date Expiration Date V isits Requested Visits Authorized [id number] New Request 10/21/2024 01/20/[phone] Encounter Details Date Type Department Care Team (Late st Contact Info) Description 11/16/2024 3:30 PM BAKERY TEAM LEADER Therapy Physical Therapy at [facility] Physical Therapy [place] [address] [place], [place] [id number] Remy Briseno, ADMISSION NURSE [address] [place], [place] [address] Neck pain (Primary Dx) Social History Tobacco Use Types Packs/Day Years Used Date Smoking Tobacco: Never Alcohol Use Standard Drinks/Week Comments No 0 (1 standard drink = 0.6 oz pur e alcohol) Sex and Gender Information Value Date Recorded Sex Assigned at Not on file Gender Identity Not on file Sexual Orientation Not on file documented as of this encounter Progress Notes * Remy Briseno, ADMISSION NURSE - 11/16/2024 3:30 PM CST 11/16/2024 Visit # 4 Protocol: Neck Start: 3:30pm End: 4:10pm (ADMISSION NURSE Visit # 2 Subjective: Pt reports her neck is doing fine, but she was really sore in both shoulder blades and down right lat after last visit. Cervical 11/16/2024 3:30 PM Cervical Set 1 Ext % Max 100% Set 1 Ext ROM 6-90 Set 1 Ext Wgt 165 Set 1 Ext Reps 20 Set 1 Ext Tul 208 Set 1 Ext Deep RPE 4 Set 2 Ext % Max 100% Set 2 Ext ROM 6-90 Set 2 Ext Wgt 165 Set 2 Ext Reps 30 Set 2 Ext Tul 302 Set 2 Ext Deep RPE 5 Objective Tests & Measures: Tests performed today (see reviewflowsheet for score and outcomes): : None Performed Today Warm Up: Movement Specific Training: Not Completed none today ICE: na Lumbar 11/16/2024 3:30 PM Lumbar & Torso Left Rot % Max 80% Left Rot ROM 35 Left Rot Wgt 24 Left Rot Reps 20 Left Rot Zelda RPE 4 Right Rot % Max 80% Right Rot ROM 35 Right Rot Wgt 24 Right Rot Reps 20 Right Rot Deep RPE 4 Therapeutic Exercise (30 min): Patient performed isolated cervical extension exercise, thoracic rotation, and auxiliary exercises to improve muscle strength, to improve muscle endurance, increase strength and endurance levels of supporting spinal muscle groups and to strengthen postural muscles to decrease stresses on the spine to increase tolerance for goals listed below. Verbal cues instructed in proper form and control on Cervical Extension machine to avoid substitution and momentum. Verbal cues for proper form and control on Thoracic Rotation with instruction for isolating obliques and reducing substitution with upper extremity/neck muscles. Cues for slow speed for increased muscle fiber recruitment. Neuromuscular Re-Education (10 min): Patient performed isolated cervical rotation to decrease substitution patterns present with chronicpain, to retrain muscles for proper sequencing and improve muscle recruitment patterns to increase tolerance for goals listed below. Verbal cues instructed in proper form on Cervical Rotation machine to have good control and speed on all reps, instructed to avoid hitting the ends too hard and to help avoid headaches. Auxillary 11/16/2024 3:30 PM Auxillary Rows Wgt Set 1 45 Rows Reps Set 1 20 Rows Wgt Set 2 45 Rows Reps Set 2 20 Lats Wgt Set 1 45 Lats Reps Set 1 20 Lats Wgt Set 2 20 Therapeutic Activities (0 min): Not performed today. Patient Education: Patient was instructed in correlation of strength and function to increase their understanding of the benefits related to completing the [facility] Neck and Back program Patient education on what a tennis unit is and how it works. Assessment: Reyna Jensen tolerated treatment well with good fatigue and challenge. Checked ROM and unable to change today. Patient worked hard within session. Symptoms were not aggravated by exercises today. Looked at way to progress patient HEP and did add in additional stretches to her HEP. Patient would benefit from further strengthening to increase tolerance to independent exercise following completion of the program. Goals: HEP/Independent Management: Demonstrate independence with HEP and self- management following each treatment session ADL's: Perform home management tasks with ease in 10 weeks. Ambulation: Ambulate for 30 minutes without increased symptoms in 10 weeks. Sports/Leisure: Return to prior level of leisure or recreational activities, including bike riding and working out at the [facility] without an increase in symptoms or limitations in 12 weeks HEP Access Code: [email or web address] PT Frequency/Duration: 0-2 x/week for 10-12 weeks [...] saddle sensation changes Anticipated visits to d/c: 14-20 Recommendations/Communication: 60% Cervical extension, 80% thoracic rotation next. Continue treatment per PT POC. Total timed code min: 40 Total treatment time: 40 Remy Briseno PTA 11/16/2024, 4:23 PM RY TEAM LEADER documented in this encounter Plan of Treatment Upcoming Encounters Date Type Department Care Team (Late st Contact Info) Description 12/06/2024 1:45 PM BAKERY TEAM LEADER Appointment Physical Therapy at [facility] Physical [facility] [address] [place] [address] Justin Aquino, ADMISSION NURSE [address] [place], [place] 12/09/2024 1:45 PM BAKERY TEAM LEADER Appointment Physical Therapy at [facility] Physical [facility] [address] [place] [address] Remy Briseno, ADMISSION NURSE [address] [facility] [address] [place] [address] 12/14/2024 1:45 PM BAKERY TEAM LEADER Appointment Physical Therapy at [facility] Physical [facility] [address] [place] [address] Miguel Choi, PT [address] [facility] [place] [address] 12/17/2024 4:15 PM BAKERY TEAM LEADER Appointment Physical Therapy at [facility] Physical [facility] [address] [place] [address] Remy Briseno, ADMISSION NURSE [address] [facility] [address] [place] [address] 12/20/2024 1:45 PM BAKERY TEAM LEADER Appointment Physical Therapy at [facility] Physical [facility] [address] [place] [address] John Jansen, ADMISSION NURSE [address] [place] [address] 12/23/2024 1:45 PM BAKERY TEAM LEADER Appointment Physical Therapy at [facility] Physical [facility] [address] [place] [address] Justin Aquino, ADMISSION NURSE [address], [address] [place] 12/23/2024 3:00 PM BAKERY TEAM LEADER Appointment [facility] [address] [place] [address] Clarke Ivory 12/27/2024 1:45 PM BAKERY TEAM LEADER Appointment Physical Therapy at [facility] Physical [address] [address] Justin Aquino, ADMISSION NURSE [address], [address] [place] 12/30/2024 1:45 PM BAKERY TEAM LEADER Appointment Physical Therapy at [facility] Physical [address] [address] Justin Aquino, ADMISSION NURSE [address] [place] 01/06/2025 1:45 PM BAKERY TEAM LEADER Appointment Physical Therapy at [facility] Physical [address] [address] Justin Aquino, ADMISSION NURSE [address] [place] documented as of this encounter Visit Diagnoses Diagnosis Neck pain- Primary Cervicalgia documented in this encounter Care Teams Box Truck Washer Relationship Specialty Start Date End Date Unassigned, Provider [address] [place] [address] PCP - General 09/24/10 11/21/24 documented as of this encounter
--- OUTSIDE RECORDS SUMMARY | 2024-12-04 16:34 | XMS_ITS | Clinical Summary ---
Author Organization [facility] Address [address] [place] [address] Care Team Providers Care Cognos Consultant Name Role Phone Zuleyma Villanueva Primary Care Provider [phone] Source Comments You are receiving this document as you are listed as the primary care provider,follow-up provider, or the patient has been referred to you for consultation.This is in compliance with the Medicare and[facility] EHR Incentive Program,which states Providers who transition their patient to another setting of careor provider of care or refers their patient to another provider of care shouldprovide summary care record for each transition of care or referral. [employer] Allergies No known active allergies Medications Medication Sig Dispensed Refills Start Date End Date Status IBUPROFEN ORIndications:Headach e(784.0) None Entered Active sumatriptan (AKA IMITREX) 50 MG tabletIndications:Hea dache(784.0) Take 1 Tab by mouth. At onset of headache may repeat once after 2 hrs if headache recurs 27 Tab 3 03/01/2011 Active buPROPion (WELLBUTRIN SR) 150 MG 12 hour release tabletIndications:Dep ression Take 150 mg by mouth daily. Takes 1 tablet in am Active fluoxetine (PROZAC) 40 MG capsuleIndications:De pression Take 40 mg by mouth daily. Takes 2 tabs in the am Active Active Problems Problem Noted Date Diagnosed Date Neck pain 11/11/2024 Panic attacks 10/02/2011 Dyspepsia 06/19/2008 Headache 06/09/2008 Depression 06/09/2008 Resolved Problems Problem Noted Date Diagnosed Date Resolved Date Hypertension 06/19/2008 10/02/2011 Shortness of breath 01/28/2007 06/09/20 08 Encounters Date Type Department Care Team Description 12/03/2024 2:00 PM BORING MACHINE OPERATOR PRODUCTION Therapy Physical Therapy at [address] [address] Remy Briseno, PATIENT SAFETY TECH Neck pain (Primary Dx) 12/01/2024 2:15 PM BORING MACHINE OPERATOR PRODUCTION Therapy Physical Therapy at [address] [place] [address] Derek Aldana, PATIENT SAFETY TECH Neck pain (Primary Dx) 11/25/2024 4:00 PM BORING MACHINE OPERATOR PRODUCTION Therapy Physical Therapy at [address] [address] Justin Aquino, PATIENT SAFETY TECH Neck pain (Primary Dx) 11/22/2024 1:45 PM BORING MACHINE OPERATOR PRODUCTION Therapy Physical Therapy at [address] [address] Yessica Garcia, PT Neck pain (Primary Dx) 11/19/2024 E-Visit [facility] [address] [place] [address] June Perez Provider 11/16/2024 3:30 PM BORING MACHINE OPERATOR PRODUCTION Therapy Physical Therapy at [address] [address] Remy Briseno, PATIENT SAFETY TECH Neck pain (Primary Dx) 11/11/2024 2:15 PM BORING MACHINE OPERATOR PRODUCTION Therapy Physical Therapy at [address] [address] Yessica Garcia, PT Neck pain (Primary Dx) 11/05/2024 Telephone Dedicated Special[facility] Scheduling Rehab [address] [facility] [place] [address] Remy Briseno, PATIENT SAFETY TECH QUESTIONS, GENERAL 11/02/2024 3:15 PM BORING MACHINE OPERATOR PRODUCTION Therapy Physical Therapy at [address] [address] Remy Briseno, PATIENT SAFETY TECH Neck pain (Primary Dx) 10/25/2024 12:45 PM BORING MACHINE OPERATOR PRODUCTION Therapy Physical Therapy at [facility] Physical Therapy [address] [address] Luis Alston, PT Neck pain (Primary Dx) from Last 3 Months Immunizations Name Administration Dates Next Due Flu Vac (3+ yrs) 10/02/2011,10/31/2009, 8 Tdap 01/11/2008 Family History Medical History Relation Name Comments Hyperlipidemia Father Cataract Mother 1 Hypertension Mother 2 dad and siste r Diabetes, Type II Other nephew Coronary Artery Disease Sister 1 Cancer, Breast Sister 2 diagnosed jose und age 50 Glaucoma Negative Family History Macular Degeneration Negative Family History Thyroid Disorder Negative Family History Relation Name Status Comments Father Mother 1 Mother 2 Other Sister 1 Sister 2 Social History Tobacco Use Types Packs/Day Years Used Date Smoking Tobacco: Never Alcohol Use Standard Drinks/Week Comments No 0 (1 standard drink = 0.6 oz pur e alcohol) Sex and Gender Information Value Date Recorded Sex Assigned at Not on file Gender Identity Not on file Sexual Orientation Not on file Last Filed Vital Signs Vital Sign Reading Time Taken Comments Blood Pressure 136/80 10/02/2011 1:30 PM BORING MACHINE OPERATOR PRODUCTION Pulse 88 10/02/2011 1:30 PM BORING MACHINE OPERATOR PRODUCTION Temperature 36.7 C (98 F) 06/24/2011 1:25 PM CDT Respiratory Rate 20 06/24/2011 3:49 PM CDT Oxygen Saturation 100% 06/24/2011 3:49 PM CDT Inhaled Oxygen Concentration - - Weight 90.3 kg (199 lb) 10/08/2011 9:58 AM BORING MACHINE OPERATOR PRODUCTION Height 174 cm (5' 8.5) 10/08/2011 9:58 AM BORING MACHINE OPERATOR PRODUCTION Body Mass Index 29.82 10/08/2011 9:58 AM BORING MACHINE OPERATOR PRODUCTION Plan of Treatment Upcoming Encounters Date Type Department Care Team (Late st Contact Info) Description 12/06/2024 1:45 PM BORING MACHINE OPERATOR PRODUCTION Appointment Physical Therapy at [facility] Physical [address] [address] Justin Aquino, PATIENT SAFETY TECH [address] [place] , [address] 12/09/2024 1:45 PM BORING MACHINE OPERATOR PRODUCTION Appointment Physical Therapy at [facility] Physical [facility] [address] [place] [place] [address] Remy Briseno, PATIENT SAFETY TECH [address] [place] [address] 12/14/2024 1:45 PM BORING MACHINE OPERATOR PRODUCTION Appointment Physical Therapy at [facility] Physical [facility] [address] [place] [address] Miguel Choi, PT [address] [place] [address] 12/17/2024 4:15 PM BORING MACHINE OPERATOR PRODUCTION Appointment Physical Therapy at [facility] Physical [facility] [address] [place] [place] [address] Remy Briseno, PATIENT SAFETY TECH [address] [facility] [address] [place] [address] 12/20/2024 1:45 PM BORING MACHINE OPERATOR PRODUCTION Appointment Physical Therapy at [facility] Physical [facility] [address] [place] [address] John Jansen, PATIENT SAFETY TECH [address] [address], [facility] [address] [place] [address] 12/23/2024 1:45 PM BORING MACHINE OPERATOR PRODUCTION Appointment Physical Therapy at [facility] Physical [facility] [address] [place] [address] Justin Aquino, PATIENT SAFETY TECH [address] [place] , [facility] [address] [place], [place] 12/23/2024 3:00 PM BORING MACHINE OPERATOR PRODUCTION Appointment [facility] [address] [place] [address] Clarke Ivory 12/27/2024 1:45 PM BORING MACHINE OPERATOR PRODUCTION Appointment Physical Therapy at [facility] Physical [facility] [address] [facility] [place] [address] Justin Aquino, PATIENT SAFETY TECH [address] 12/30/2024 1:45 PM BORING MACHINE OPERATOR PRODUCTION Appointment Physical Therapy at [facility] Physical [place] [address] [place] [address] Justin Aquino, PATIENT SAFETY TECH [address] [place] 01/06/2025 1:45 PM BORING MACHINE OPERATOR PRODUCTION Appointment Physical Therapy at [facility] Physical [facility] [address] [place] [place] [address] Justin Aquino, PATIENT SAFETY TECH [address], [address] Health Maintenance Due Date Last Done Comments Colon Cancer Screening Plan Due 1960 Hep C Screening (Preventive Services) 1960 Medicare Annual Wellness Visit 1960 HIV Screening (Preventive Services) 1976 Cervical Cancer Screening Due 10/03/2011 10/02/2011, 01/16/2010 Cholesterol 06/09/2013 06/09/2008 Zoster/Shingles (2 of 3) 02/09/2015 12/15/2014 Mammogram 10/07/2023 10/07/2022, 05/18, 01/16/2010, Additional history exists DTaP/Tdap/Td (3 - Tdap) 09/06/2030 09/06/2020, 01/11 RSV (1 - 1-dose 75+ series) 2035 Pneumococcal Aged Out 05/21/2023, 11/02/2016 No lo nger eligible based on patient's age to complete this topic COVID-19 Vaccine Completed 10/20/2024 Influenza Completed 10/20/2024, 01/16, 09/06/2020, Additional history exists HepA Aged Out No longer eligi ble based on patient's age to complete this topic HepB Aged Out No longer eligi ble based on patient's age to complete this topic Hib Aged Out No longer eligi ble based on patient's age to complete this topic IPV (Polio) Aged Out No longer eligi ble based on patient's age to complete this topic MCV4 Aged Out No longer eligi ble based on patient's age to complete this topic Procedures Procedure Name Priority Date/Time Associated Diagnosis Comments PAP TEST, ROUTINE Routine 10/02/2011 12: 00 AM BORING MACHINE OPERATOR PRODUCTION Screening for malignant neoplasm of the cervix MM MAMMOGRAM SCREENING BILAT W CAD Routine 01/16/2010 2:34 PM BORING MACHINE OPERATOR PRODUCTION LIPID PANEL, FAST > 12 HOUR Routine 06/09/2008 9:42 AM CDT Screening from Last 3 Months or Most Recently Relevant to Health Maintenance Results * PAP TEST, ROUTINE (10/02/2011 12:00 AM BORING MACHINE OPERATOR PRODUCTION) Cytology, Pap (NOTE) Director Of Outside Sales Cytology Report Patient Name: REYNA CANNON Taken: 10/02/2011 Received: 10/03/2011 Reported: 10/16/2011 Physician(s): MONET BEACH ([id number]) Source of Specimen Liquid routine Pap, cervical/endocervi celso: Specimen Adequacy Satisfactory for evaluation. Endocervical component absent. Final Cytologic Interpretation/Res ult NEGATIVE FOR INTRAEPITHELIAL LESION OR MALIGNANCY (NILM) Electronically Signed Out By ZACK Lai (ASCP) ZACK Lai (ASCP) Pap Smear History Date of Last Menstrual Period: Menopausal Microscopic Description Microscopic examination is performed. [facility] 10/02/2011 10/03/2011 11: 00 AM BORING MACHINE OPERATOR PRODUCTION Monet Beach MD LAB_1 [facility] [address] [address] * MAMMOGRAM SCREENING BILATERAL (01/16/2010 2:34 PM BORING MACHINE OPERATOR PRODUCTION) Anatomical Region Laterality Modality Breast Bilateral Mammography Narrative 01/17/2010 2:54 PM BORING MACHINE OPERATOR PRODUCTION BILATERAL FULL FIELD DIGITAL SCREENING MAMMOGRAM Performed on 01/16/2010 Comparison: MAMMOGRAM SCREENING W/CAD BILAT 11/04/08 Findings: The breasts are heterogeneously dense. This may lower the sensitivity of mammography. There is no radiographic evidence of malignancy. This study was evaluated with the assistance of Computer-Aided Detection. Repeat routine screening mammogram in one year is recommended. ACR BI-RADS Category 1: Negative Procedure Note Elda Stoddard Avila - 01/17/2010 BILATERAL FULL FIELD DIGITAL SCREENING MAMMOGRAM Performed on 01/16/2010 Comparison: MAMMOGRAM SCREENING W/CAD BILAT 11/04/08 Findings: The breasts are heterogeneously dense. This may lower thesensitivity of mammography. There is no radiographic evidence ofmalignancy. This study was evaluated with the assistance of Computer-AidedDetection. Repeat routine screening mammogram in one year is recommended. ACR BI-RADS Category 1: Negative Jenn Boone PA-C RAD NICKI * LIPID PANEL, FAST > 12 HOUR (06/09/2008 9:42 AM CDT) Cholesterol 192 0 - 199 mg/dl [facility] Triglyceride 55 0 - 149 mg/dl [facility] HDL 67 >40 mg/dl [facility] LDL, Calc. 114 0 - 129 mg/dl [facility] Hours Fasting 12 hours [facility] 06/09/2008 9:42 AM CDT 06/09/2008 9:47 AM CDT Tana Dixon MD [facility] [address] [address] from Last 3 Months or Most Recently Relevant to Health Maintenance Care Teams Cognos Consultant Relationship Specialty Start Date End Date Zuleyma Vill[place]ueva [place] [address] [place] [address] PCP - General Family Practice 11/22/24
--- OUTSIDE RECORDS SUMMARY | 2024-12-04 16:34 | XMS_ITS | Encounter Summary ---
Author Organization [employer] Address [address] [place] [address] Care Team Providers Care Keypuncher Name Role Phone Zuleyma Villanueva Primary Care Provider [phone] Reason for Visit * Reason Comments NECK PAIN * Therapies (Routine) - New Request Specialty Diagnoses / Procedures Referred By Ulisses dotson Referred To Contact Physical Therapy Diagnoses Cervicalgia Other chronic pain Procedures [place] [address] [facility] [place] [place] [address] [facility] Physical Therapy [address] [facility] [place] [address] Referral ID Status Reason Start Date Expiration Date V isits Requested Visits Authorized [id number] New Request 10/21/2024 01/20/[phone] Encounter Details Date Type Department Care Team (Late st Contact Info) Description 11/22/2024 1:45 PM TANK TRUCK DRIVER Therapy Physical Therapy at [facility] Physical [facility] [address] [place] [address] Yessica Garcia, PT [address] [place], [place] [id number] Neck pain (Primary Dx) Social History Tobacco [...] Progress Notes * Yessica Garcia, PT - 11/22/2024 1:45 PM CST 11/22/2024 Visit # 5 Protocol: Neck Start: 1:49 End: 2:37 (ASSURANCE ENGINEER Visit # 2 Subjective: Pt had increased pain after last session but typical to pt's prior experience w/ strength PT. Pt brought in a TENS unit that she borrowed from her son w/ questions on use. Cervical 11/22/2024 1:45 PM Cervical Set 1 Ext % Max 100 Set 1 Ext ROM 6-90 Set 1 Ext Wgt 183 Set 1 Ext Reps 30 Set 1 Ext Tul - Set 1 Ext Deep RPE 5-6 Set 2 Ext % Max 100 Set 2 Ext ROM 6-90 Set 2 Ext Wgt 192 Set 2 Ext Reps 29 Set 2 Ext Tul - Set 2 Ext Deep RPE 7 Left Rot % Max 60 Left Rot ROM 36 Left Rot Wgt 28 Left Rot Reps 20 Left Rot Deep RPE 3 Right Rot % Max 60 Right Rot ROM 36 Right Rot Wgt 28 Right Rot Reps 20 Right Rot Deep RPE 3 Objective Tests & Measures: C-roto ROM: 36/36 5% increase C-ext 2nd set due to reps, RPE 1st set Tests performed today (see reviewfloweet for score and outcomes): : None Performed Today Warm Up: Movement Specific Training: Not Completed none today ICE: na Lumbar Not performed today. Therapeutic Exercise (23 min): Patient performed isolated cervical extension exercise and auxillary exercises to improve muscle strength to increase tolerance for personal care tasks and household tasks Cues for head position w/ T-roto ex to diminish cervical strain Neuromuscular Re-Education (10 min): Patient performed isolated cervical rotation decrease substitution patterns and normalize movement patterns to increase tolerance for personal care tasks and household tasks. Instructed in pace, control, eccentric motion w/ C-roto to engage muscles through full motion Auxillary Not performed today. Therapeutic Activities (15 min): 11/22/2024 1:45 PM Therapeutic Activities OTHER ACTIVITY Instructed/demonstrated/ performed setup of TENS pad in crossed pattern in upper back w/ cues to keep pads behind SCMsto avoid baroreceptors in left carotid. Patient Education: Patient was instructed in pain/time scale and correlation of strength and function to increase their understanding of the benefits related to completing the [facility] Neck and Back Strengthening program Use of TENS 30'/x, can keep pads on during day, use as needed Assessment: Pt did well during session, tolerated weight increase w/ C-ext, 1st C-roto. Receptive to instruction, feedback, to improve quality of motion w/ TENS setup performed. Will benefit from resuming auxiliary ex. Goals: HEP/Independent Management: Demonstrate independence with HEP and self- management following each treatment session ADL's: Perform home management tasks with ease in 10 weeks. Ambulation: Ambulate for 30 minutes without increased symptoms in 10 weeks. Sports/Leisure: Return to prior level of leisure or recreational activities, including bike riding and working out at the [facility] without an increase in symptoms or limitations in 12 weeks HEP Access Code: [email or web address] PT Frequency/Duration: 0-2 x/week for 10-12 weeks [...] saddle sensation changes Anticipated visits to d/c: 13-19 Recommendations/Communication: C-ext 60% C-roto 80% Resume all auxiliary Total timed code min: 48 Total treatment time: 48 Yessica Garcia, PT 11/22/2024, 3:14 PM TRUCK DRIVER documented in this encounter Plan of Treatment Upcoming Encounters Date Type Department Care Team (Late st Contact Info) Description 12/06/2024 1:45 PM TANK TRUCK DRIVER Appointment Physical Therapy at [facility] Physical Therapy [facility] [address] [place] [address] Justin Aquino, ASSURANCE ENGINEER [address] [place] 12/09/2024 1:45 PM TANK TRUCK DRIVER Appointment Physical Therapy at [facility] Physical [facility] [address] [place] [address] Remy Briseno, ASSURANCE ENGINEER [address] [place] [address] 12/14/2024 1:45 PM TANK TRUCK DRIVER Appointment Physical Therapy at [facility] Physical [facility] [address] [place] [address] Miguel Choi, PT [address] [place] [address] 12/17/2024 4:15 PM TANK TRUCK DRIVER Appointment Physical Therapy at [facility] Physical [facility] [address] [place] [address] Remy Briseno, ASSURANCE ENGINEER [address] [facility] [address] [place] [address] 12/20/2024 1:45 PM TANK TRUCK DRIVER Appointment Physical Therapy at [facility] Physical [facility] [address] [place] [address] John Jansen, ASSURANCE ENGINEER [address] [address], [facility] [address] [place], [place] [id number] 12/23/2024 1:45 PM TANK TRUCK DRIVER Appointment Physical Therapy at [facility] Physical [facility] [address] [place] [address] Justin Aquino, ASSURANCE ENGINEER [address] [facility], [facility] [address] [place], [place] 12/23/2024 3:00 PM TANK TRUCK DRIVER Appointment [facility] [address] [place] [address] Clarke Ivory 12/27/2024 1:45 PM TANK TRUCK DRIVER Appointment Physical Therapy at [facility] Physical [address] [address] Justin Aquino, ASSURANCE ENGINEER [address] [place] 12/30/2024 1:45 PM TANK TRUCK DRIVER Appointment Physical Therapy at [facility] Physical [address] [address] Justin Aquino, ASSURANCE ENGINEER [address] [place] 01/06/2025 1:45 PM TANK TRUCK DRIVER Appointment Physical Therapy at [facility] Physical [address] [address] Justin Aquino, ASSURANCE ENGINEER [address] [place] documented as of this encounter Visit Diagnoses Diagnosis Neck pain- Primary Cervicalgia documented in this encounter Care Teams Keypuncher Relationship Specialty Start Date End Date Zuleyma Villanueva DO [address] [place] [address] PCP - General Family Practice 11/22/24 documented as of this encounter
--- OUTSIDE RECORDS SUMMARY | 2024-12-04 16:34 | XMS_ITS | Encounter Summary ---
Author Organization [employer] Address [address] [place] [address] Care Team Providers Care Station Cleaning Porter Name Role Phone Unassigned, Provider Primary Care Provider Unava ilable Reason for Visit * Reason Comments Spine Cervical * Therapies (Routine) - New Request Specialty Diagnoses / Procedures Referred By Ulisses dotson Referred To Contact Physical Therapy Diagnoses Cervicalgia Other chronic pain Procedures [place] [address] [place] [address] [facility] Physical Therapy [address] [facility] [place] [address] Referral ID Status Reason Start Date Expiration Date V isits Requested Visits Authorized [id number] New Request 10/21/2024 01/20/[phone] Encounter Details Date Type Department Care Team (Late st Contact Info) Description 10/25/2024 12:45 PM TRIMMING DEPARTMENT BLOCKER Therapy Physical Therapy at [facility] Physical [facility] [place] [address] [place], [place] [phone] Luis Alston PT [address] [place], [place] [address] Neck pain (Primary Dx) Social History Tobacco Use Types Packs/Day Years Used Date Smoking Tobacco: Never Alcohol Use Standard Drinks/Week Comments No 0 (1 standard drink = 0.6 oz pur e alcohol) Sex and Gender Information Value Date Recorded Sex Assigned at Not on file Gender Identity Not on file Sexual Orientation Not on file documented as of this encounter Progress Notes * Luis Alston, PT - 10/25/2024 12:45 PM CST Physical Therapy Cervical Spine Evaluation/Plan of Care Visit Number: 1 Medicare Initial Certification Period: 10/25/2024 to 01/23/25 Referring Provider: Yris Bowman MD Diagnosis: Neck and Shoulder Pain Orders: Evaluate & treat Precautions/Contraindications: None Date of Onset: 2021 Standardized Functional Score: History: Reports that she had a gradual onset of neck and back pain 2 years ago without any ANNE. Reports that she has previous done the neck and back strengthening program as part of [facility]. Localizes her pain to the R upper trapezius and mid thoracic spine. Time of day doesn't play into symptoms. Denies any numbness/tingling. Denies any symptoms into her UE. Has been taking ibuprofen and tylenol for pain relief. Hasn't been doing any formal treatments up to this point. Method of Injury: Gradual onset Occupation: not currently working Exercise habits: Hasn't exercised in the recent past - would like to get back into riding her bike and walk Functional Limitations: ROM of her neck, trunk rotation, tolieting Patient???s Therapy Goals: Her goal is to be able to start exercising more consistently and not be limited by pain. SUBJECTIVE: Pain Ratin/10 at the worst - without any explanation Falls in the Past Year: No. Past Medical History: See EMR for details regarding past medical history, medications and drug allergies. History pertinent to therapy includes peripheral neuropathy, ongoing depression, ADHD, metabolic syndrome. Review of Systems: Denies fever, chills, night sweats, unrelenting night pain, unexplained weight loss, bowel/bladder changes, saddle sensation changes Past Medical History: Diagnosis Date Depression 06/09/2008 Dyspepsia 06/19/2008 Headache 06/09/2008 Hypertension 06/19/2008 Panic attacks 10/02/2011 Parathyroid adenoma age 18 Past Surgical History: Procedure Laterality Date PARATHYROIDECTOMY/EXPL PARATHYROID; age 18 PROBE DISCECTOMY [id number] ([id number]) L4-5 OBJECTIVE: General: Mood, orientation, behavior were appropriate. Patient was alert and oriented. Observation/Posture/Alignment: rounded shoulders with forward head position Upper Quadrant Screen: Unremarkable ROM: Flexion: 0-35 Extension: 0-32 Joint mobility: hypomobility noted with sleep tech and bilateral UPAs with mid to upper thoracic spine. Hypomobility noted with increased symptoms with CPA and R>L UPAs in lower to mid cervical spine. Flexibility: Not tested Neurological Screen: Dermatomes: - Myotomes: WFL Radial nerve, upper limb tension tests: - Medial nerve, upper limb tension tests: - Ulnar nerve, upper limb tension tests: - Strength: Not Tested Palpation: tender to palpation at R upper trapezius and cervical paraspinals Special Tests (+ is a positive finding, - is a negative finding): Spurling: - Functional Tests: Not Tested TREATMENT TODAY: Physical Therapy Evaluation (CPT 35176): An evaluation was performed. The patient was determined tohave moderate complexity based on history, examination, clinical presentation of the patient and the PT's clinical decision making. The patient was educated on the condition, planned therapy intervention and the expectations from treatment. Goals were a collaborative effort of the therapist and patient. Neuromuscular Re-education (CPT 39802) x 23 minutes: Utilized to improve deficits in movement, balance, coordination, kinesthetic sense, posture, and/or proprioception. Access Code: [email or web address] Exercises - Standing Cervical Rotation AROM with Overpressure - 3 x daily - 7 x weekly - 1 sets - 10 reps - Seated Cervical Rotation AROM - 10 x daily - 7 x weekly - 1 sets - 10 reps - Doorway Pec Stretch at 90 Degrees Abduction - 3 x daily - 7 x weekly - 1 sets - 10 reps - Shoulder External Rotation and Scapular Retraction with Resistance - 1 x daily - 3 x weekly - 3 sets - 10-15 reps PNE: - positive prognosis - motion is lotion - work within symptoms Timed Code Treatment Minutes: 23 Total Treatment Minutes: 35 Medicare Unit Trackin Education/Handouts: Diagnosis education Self management of symptoms Response to treatment: Good understanding of HEP, Increased ROM ASSESSMENT: Therapist Impression: Reyna presents today with stated diagnosis. Clinically she presents with decreased cervical AROM, decreased cervical/thoracic mobility, and reduced functional capacity. Symptoms consistent with mechanical neck pain. Responded well to PNE topics today. Discussed the importance of movement throughout the day but to avoid pushing through symptoms. Continued therapy is needed to address areas of limitation and to promote return to PLOF. . Barriers to Learning: none Rehab Prognosis: Excellent PLAN: Planned Intervention/Education: Re-Evaluation, Education, Therapeutic Exercise, Manual Therapy, Neuromuscular Re-education, Self Care/Home Management, Therapeutic Activities, Isokinetic/Performance Testing, Ice, Heat, E-Stim: Unattended, Mechanical Traction, TENS PT Frequency/Duration: 0-2 x/week for 10-12 weeks for a total of 20-24 visits Discharge Plan: Goal achievement, goal achievement with home exercise program or if progress plateaus. Informed Consent: Risks, benefits and alternatives to treatment have been explained. Patient and/orfamily in agreement with care plan. EXPECTED FUNCTIONAL OUTCOMES/GOALS: HEP/Independent Management: Demonstrate independence with HEP and self- management following each treatment session ADL's: Perform home management tasks with ease in 10 weeks. Ambulation: Ambulate for 30 minutes without increased symptoms in 10 weeks. Sports/Leisure: Return to prior level of leisure or recreational activities, including bike riding and working out at the [facility] without an increase in symptoms or limitations in 12 weeks. Patient Education: Patient was instructed in pain/time scale and correlation of strength and function to increase their understanding of the benefits related to completing the [facility] Neck and Back program Assessment: See above Goals: See above Precautions/Other Information: See above Protocol: Neck (Rows, lats, shrugs) Access Code: [email or web address] Recommendations/Communication: 60% cervical extension at RPE of 3-4 and AROM to tolerance and thoracic rotation with AROM to tolerance @20#. Auxillary. Continue treatment per PT POC. Evaluation and Plan of Care completed by: Luis Alston PT 1:08 PM 10/25/2024 The plan of care has been sent to the out of network referring clinician for signature to certify medical necessity for the plan above. MING DEPARTMENT BLOCKER documented in this encounter Plan of Treatment Upcoming Encounters Date Type Department Care Team (Late st Contact Info) Description 12/06/2024 1:45 PM TRIMMING DEPARTMENT BLOCKER Appointment Physical Therapy at [facility] Physical Therapy [facility] [place] [address] [place], [place] [address] Justin Aquino, NATIONAL SALES ASSOCIATE [address] [place], [place] 12/09/2024 1:45 PM TRIMMING DEPARTMENT BLOCKER Appointment Physical Therapy at [facility] Physical [facility] [address] [place] [address] Remy Briseno, NATIONAL SALES ASSOCIATE [address] [place] [address] 12/14/2024 1:45 PM TRIMMING DEPARTMENT BLOCKER Appointment Physical Therapy at [facility] Physical [facility] [address] [place] [address] Miguel Choi, PT [address] [place] [address] 12/17/2024 4:15 PM TRIMMING DEPARTMENT BLOCKER Appointment Physical Therapy at [facility] Physical [facility] [address] [place] [address] Remy Briseno, NATIONAL SALES ASSOCIATE [address] [facility] [address] [place] [address] 12/20/2024 1:45 PM TRIMMING DEPARTMENT BLOCKER Appointment Physical Therapy at [facility] Physical [facility] [address] [place] [address] John Jansen, NATIONAL SALES ASSOCIATE [address] [facility], [facility] [address] [place] [address] 12/23/2024 1:45 PM TRIMMING DEPARTMENT BLOCKER Appointment Physical Therapy at [facility] Physical [facility] [address] [place] [address] Justin Aquino, NATIONAL SALES ASSOCIATE [address] [facility], [facility] [address] [place], [place] 12/23/2024 3:00 PM TRIMMING DEPARTMENT BLOCKER Appointment [facility] [address] [place] [address] Clarke Ivory 12/27/2024 1:45 PM TRIMMING DEPARTMENT BLOCKER Appointment Physical Therapy at [facility] Physical [address] [address] Justin Aquino, NATIONAL SALES ASSOCIATE [address], [address] [place] 12/30/2024 1:45 PM TRIMMING DEPARTMENT BLOCKER Appointment Physical Therapy at [facility] Physical [address] [address] Justin Aquino, NATIONAL SALES ASSOCIATE [address] [place] 01/06/2025 1:45 PM TRIMMING DEPARTMENT BLOCKER Appointment Physical Therapy at [facility] Physical [address] [address] Justin Aqiuno, NATIONAL SALES ASSOCIATE [address], [address] documented as of this encounter Visit Diagnoses Diagnosis Neck pain- Primary Cervicalgia documented in this encounter Care Teams Station Cleaning Porter Relationship Specialty Start Date End Date Unassigned, Provider [address] [place] [address] PCP - General 09/24/10 11/21/24 documented as of this encounter
--- OUTSIDE RECORDS SUMMARY | 2024-12-04 16:34 | XMS_ITS | Encounter Summary ---
Author Organization [employer] Address [address] [place] [address] Care Team Providers Care Operater Name Role Phone Zuleyma Villanueva Primary Care Provider [phone] Reason for Visit * Reason Comments Neck Pain * Therapies (Routine) - New Request Specialty Diagnoses / Procedures Referred By Ulisses dotson Referred To Contact Physical Therapy Diagnoses Cervicalgia Other chronic pain Procedures [place] [address] [facility] [place] [address] [facility] [address] [facility] [place] [address] Referral ID Status Reason Start Date Expiration Date V isits Requested Visits Authorized [id number] New Request 10/21/2024 01/20/2026 [id number] Encounter Details Date Type Department Care Team (Late st Contact Info) Description 12/03/2024 2:00 PM RECREATION WORKER Therapy Physical Therapy at [facility] Physical [facility] [address] [place], [place] [address] Remy Briseno, ARMHOLE BASTER JUMPBASTING [address] [place], [place] [address] Neck pain (Primary Dx) Social History Tobacco [...] this encounter Progress Notes * Remy Briseno, ARMHOLE BASTER JUMPBASTING - 12/03/2024 2:00 PM CST 12/03/2024 Visit # 8 Protocol: Neck Start: 2:00pm End: 2:40pm (ARMHOLE BASTER JUMPBASTING Visit # 5 Subjective: Pt reports she had a little bit of pain on the right side of the neck and and lower R side of the back. Cervical 12/03/2024 2:00 PM Cervical Set 1 Ext % Max 60% Set 1 Ext ROM 6-90 Set 1 Ext Wgt 125 Set 1 Ext Reps 30 Set 1 Ext Tul 189 Set 1 Ext Deep RPE 5 Left Rot % Max 100% Left Rot ROM 42 Left Rot Wgt 40 Left Rot Reps 20 Right Rot % Max 100% Right Rot ROM 42 Right Rot Wgt 40 Right Rot Reps 20 Objective Tests & Measures: Tests performed today (see reviewflowsheet for score and outcomes): : None Performed Today Warm Up: Movement Specific Training: Completed Bike: Minutes 5 Intensity Mod ICE: na Lumbar 12/03/2024 2:00 PM Lumbar & Torso Left Rot % Max 60 Left Rot ROM 35 Left Rot Wgt 24 Left Rot Reps 20 Left Rot Zelda RPE 4 Right Rot % Max 60 Right Rot ROM 35 Right Rot Wgt 24 Right Rot Reps 20 Right Rot Deep RPE 4 Therapeutic Exercise (23 min): Patient performed isolated cervical rotation exercise and auxiliary exercises to improve muscle strength, to improve muscle endurance, increase strength and endurance levels of supporting spinal muscle groups and to strengthen postural muscles to decrease stresses on the spine to increase tolerancefor goals listed below. Verbal cues instructed in proper form on Cervical Rotation machine to have good control and speed on all reps, instructed to avoid hitting the ends too hard and to help avoid headaches. Neuromuscular Re-Education (17 min): Patient performed isolated torso rotation and isolated cervical extension to decrease substitution patterns present with chronic pain, to retrain muscles for proper sequencing and [...] slow speed for increased muscle fiber recruitment. Auxillary 12/03/2024 2:00 PM Auxillary Rows Wgt Set 1 55 Rows Reps Set 1 20 Lats Wgt Set 1 50 Lats Reps Set 1 20 Shrug Wgt Set 1 10 Shrug Reps Set 1 20 Other Reviewed goals Therapeutic Activities (0 min): Not performed today. Patient Education: Patient was instructed in correlation of strength and function to increase their understanding of the benefits related to completing the [facility] Neck and Back program Educated patient on sequence of the program, the use of light/heavy sessions on machines to reduce risk of flare ups and overworking muscles. Assessment: Reyna Jensen tolerated treatment well with good fatigue and challenge. Patient did note some pain on her R side during torso rotation moving both directions. Reviewed patient goals and she is making slow progress towards them but has not met at this point. Patient would continue to benefit from skilled physical therapy to decrease pain and improve overall muscularly strengthen and stability for greater function in patient ADL's and work duties. Goals: HEP/Independent Management: Demonstrate independence with HEP and self- management following each treatment session Progressing 12/03/2024 ADL's: Perform home management tasks with ease in 10 weeks. Progressing 12/03/2024 Ambulation: Ambulate for 30 minutes without increased symptoms in 10 weeks. Progressing 12/03/2024 Sports/Leisure: Return to prior level of leisure or recreational activities, including bike riding and working out at the [facility] without an increase in symptoms or limitations in 12 weeks Progressing 12/03/2024 HEP Access Code: [email or web address] Anticipated visits to d/c: 10-03 Precautions/Other Information: None Recommendations/Communication: 100% cervical extension, 60% cervical rotation and 100% thoracic rotation. Continue treatment per PT POC. Total timed code min: 40 Total treatment time: 40 Remy Briseno PTA 12/03/2024, 2:49 PM EATION WORKER Associated attestation - Carol Rodriguez, PT - 12/03/2024 4:09 PM RECREATION WORKER Observed treatment session. ARMHOLE BASTER JUMPBASTING has been instructed in and demonstrates skills necessary to carry out the stated treatment plan. Plan of care remains appropriate. Carol Rodriguez, PT 12/03/2024, 4:09 PM 12/03/2024 documented in this encounter Plan of Treatment Upcoming Encounters Date Type Department Care Team (Late st Contact Info) Description 12/06/2024 1:45 PM RECREATION WORKER Appointment Physical Therapy at [facility] Physical [facility] [address] [place] [address] Justin Aquino, ARMHOLE BASTER JUMPBASTING [address] [place] , [facility] [address] [place], [place] 12/09/2024 1:45 PM RECREATION WORKER Appointment Physical Therapy at [facility] [address] [place] [address] Remy Briseno, ARMHOLE BASTER JUMPBASTING [address] [facility] [address] [place] [address] 12/14/2024 1:45 PM RECREATION WORKER Appointment Physical Therapy at [facility] Physical [facility] [address] [place] [address] Miguel Choi, PT [address] [place] [address] 12/17/2024 4:15 PM RECREATION WORKER Appointment Physical Therapy at [facility] Physical [facility] [address] [place] [address] Remy Briseno, ARMHOLE BASTER JUMPBASTING [address] [facility] [address] [facility] [address] [place] [address] 12/20/2024 1:45 PM RECREATION WORKER Appointment Physical Therapy at [facility] Physical [facility] [address] [place] [address] John Jansen, ARMHOLE BASTER JUMPBASTING [address] [address], [facility] [address] [place], [place] [id number] 12/23/2024 1:45 PM RECREATION WORKER Appointment Physical Therapy at [facility] Physical [address] [address] Justin Aquino, ARMHOLE BASTER JUMPBASTING [address], [place] [address] [place] 12/23/2024 3:00 PM RECREATION WORKER Appointment [facility] [address] [place] [address] Clarke Ivory 12/27/2024 1:45 PM RECREATION WORKER Appointment Physical Therapy at [facility] Physical [address] [address] Justin Aquino, ARMHOLE BASTER JUMPBASTING [address], [place] [address] [place] 12/30/2024 1:45 PM RECREATION WORKER Appointment Physical Therapy at [facility] Physical [address] [address] Justin Aquino, ARMHOLE BASTER JUMPBASTING [address] [place] [address] [place] 01/06/2025 1:45 PM RECREATION WORKER Appointment Physical Therapy at [facility] Physical [address] [address] Justin Aquino, ARMHOLE BASTER JUMPBASTING [address] [place] [address] [place] documented as of this encounter Visit Diagnoses Diagnosis Neck pain- Primary Cervicalgia documented in this encounter Care Teams Operater Relationship Specialty Start Date End Date Zuleyma Villanueva DO [address] [place] [address] PCP - General Family Practice 11/22/24 documented as of this encounter
--- OUTSIDE RECORDS SUMMARY | 2024-12-04 16:34 | XMS_ITS | Encounter Summary ---
Author Organization [employer] Address [address], [place] [address] Care Team Providers Care Unit Manager Name Role Phone Zuleyma Villanueva Primary Care Provider [phone] Reason for Visit * Reason Comments QUESTIONS, GENERAL Encounter Details Date Type Department Care Team (Late st Contact Info) Description 11/05/2024 Telephone Dedicated Specialty Scheduling Rehab [address] [place] [address] Remy Briseno, [employer] [address] [facility] [address] [place], [place] [address] QUESTIONS, GENERAL Social History Tobacco Use Types Packs/Day Years Used Date Smoking Tobacco: Never Alcohol Use Standard Drinks/Week Comments No 0 (1 standard drink = 0.6 oz pur e alcohol) Sex and Gender Information Value Date Recorded Sex Assigned at Not on file Gender Identity Not on file Sexual Orientation Not on file documented as of this encounter Nursing Notes * Valerie Horton - 11/05/2024 1:14 PM CST Please detail the reason for your call: Patient will like a phone call due to the fact she has cancelled her 11/05/24 appt today . Is it okay to leave a detailed message on your voicemail? Yes *The therapist will get back to you within three business days. If your call is related to symptomsand you have concerns please contact your Primary Care or referring provider. ICAL APPEALS RN documented in this encounter Plan of Treatment Upcoming Encounters Date Type Department Care Team (Late st Contact Info) Description 12/06/2024 1:45 PM CLINICAL APPEALS RN Appointment Physical Therapy at [facility] Physical [facility] [address] [address] Justin Aquino, [employer] [address] [facility], [address] [place], [place] 12/09/2024 1:45 PM CLINICAL APPEALS RN Appointment Physical Therapy at [facility] Physical [facility] [address] [place] [address] Remy Briseno, [employer] [address] [place] [address] [facility] [address] [place] [address] 12/14/2024 1:45 PM CLINICAL APPEALS RN Appointment Physical Therapy at [facility] Physical [facility] [address] [place] [address] Miguel Choi, PT [address] [place] [address] 12/17/2024 4:15 PM CLINICAL APPEALS RN Appointment Physical Therapy at [facility] Physical [facility] [address] [place] [address] Remy Briseno, [employer] [address] [place] [address] [facility] [address] [place] [address] 12/20/2024 1:45 PM CLINICAL APPEALS RN Appointment Physical Therapy at [facility] Physical [facility] [address] [place] [address] John Jansen, [employer] [address] [address], [address] [place] [address] 12/23/2024 1:45 PM CLINICAL APPEALS RN Appointment Physical Therapy at [facility] Physical [place] [place] [address] Justin Aquino, [employer] [address] [place] [address] [place] 12/23/2024 3:00 PM CLINICAL APPEALS RN Appointment [facility] [address] [place] [address] Clarke Ivory 12/27/2024 1:45 PM CLINICAL APPEALS RN Appointment Physical Therapy at [facility] Physical [address] [address] Justin Aquino, [employer] [address] [place] [address] [place] 12/30/2024 1:45 PM CLINICAL APPEALS RN Appointment Physical Therapy at [facility] Physical [address] [address] Justin Aquino, [employer] [address] [place] 01/06/2025 1:45 PM CLINICAL APPEALS RN Appointment Physical Therapy at [facility] Physical [address] [place] [address] Justin Aquino, [employer] [address] [place] [address] documented as of this encounter Visit Diagnoses Not on filedocumented in this encounter Care Teams Unit Manager Relationship Specialty Start Date End Date Zuleyma Vill[place]ueva [place] [address] PCP - General Family Practice 11/22/24 documented as of this encounter
--- OUTSIDE RECORDS SUMMARY | 2024-12-04 16:34 | XMS_ITS | Encounter Summary ---
Author Organization [employer] Address [address] [place] [address] Care Team Providers Care Shank Scourer Name Role Phone Zuleyma Villanueva DO Primary Care Provider [phone] Reason for Visit * Reason Comments NECK PAIN Encounter Details Date Type Department Care Team (Late st Contact Info) Description 11/25/2024 4:00 PM CNC LATHE MACHINIST Therapy Physical Therapy at [facility] Physical Therapy [facility] [place] [address] [place] [address] Justin Aquino, ASSISTANT PROFESSOR OF MATHEMATICS [address] [place] , [address] Neck pain (Primary Dx) Social History Tobacco Use Types Packs/Day Years Used Date Smoking Tobacco: Never Alcohol Use Standard Drinks/Week Comments No 0 (1 standard drink = 0.6 oz pur e alcohol) Sex and Gender Information Value Date Recorded Sex Assigned at Not on file Gender Identity Not on file Sexual Orientation Not on file documented as of this encounter Progress Notes * Justin Aquino, ASSISTANT PROFESSOR OF MATHEMATICS - 11/25/2024 4:00 PM CST 11/25/2024 Visit # 6 Protocol: Neck Start: 4:10 End: 4:45 (ASSISTANT PROFESSOR OF MATHEMATICS Visit # 3 Subjective: Pt states the suggestion PT made last visit to try to sleep on other side that pt generally sleeps on made a huge difference, pt still has all the Sx's that brought pt here but Sx's were more nicoltete & has not had much trouble sleeping on R side. Cervical 11/25/2024 4:00 PM Cervical Set 1 Ext % Max 60% Set 1 Ext ROM 6-90 Set 1 Ext Wgt 114 Set 1 Ext Reps 30 Set 1 Ext Tul 230 Set 1 Ext Deep RPE 4 Left Rot % Max 80% Left Rot ROM 36 Left Rot Wgt 36 Left Rot Reps 25 Left Rot Deep RPE 4 Right Rot % Max 80% Right Rot ROM 36 Right Rot Wgt 36 Right Rot Reps 25 Right Rot Deep RPE 4 Objective Tests & Measures: Gave 1st increase to C-Roto for 80% intensity, no other increases or changes to ROM/wts. Tests performed today (see reviewflowsheet for score and outcomes): : None Performed Today Warm Up: Movement Specific Training: Not Completed Mat Exercises Completed none today ICE: Declined Lumbar 11/25/2024 4:00 PM Lumbar & Torso Left Rot % Max 60% Left Rot ROM 35 Left Rot Wgt 22 Left Rot Reps 25 Left Rot Zelda RPE 4/5 Right Rot % Max 60% Right Rot ROM 35 Right Rot Wgt 22 Right Rot Reps 25 Right Rot Deep RPE 4/5 Therapeutic Exercise (23 min): Patient performed isolated cervical rotation exercise and auxillary exercises to improve muscle strength, to improve muscle endurance, to increase strength for seated posture, to increase strength for standing posture, to provide postural and scapular stability, increase strength and endurance levels of supporting spinal muscle groups and to strengthen postural muscles to decrease stresses on thespine to increase tolerance for Goals Below VC's for control of pace in cervical rotation today, VC's for squeezing shoulder blades together more for better muscle activation Neuromuscular Re-Education (12 min): Patient performed isolated torso rotation and isolated cervical extension to decrease substitution patterns present with chronic pain, to retrain muscles for proper sequencing, improve muscle recruitment patterns, to improve coordination and movement quality, decrease substitution patterns and normalize movement patterns, to improve kinesio awareness, to improve movement patterns in an isolated plane and to train functional 3 dimensional patterns of movement to increase tolerance for Goals Below. Reminders to slow reps down in Cext for better strength gains, fatigue & improvements to functional deficits too as program cont to progress. VC's for control of pace in torso rotation today, Cues for breathing correctly with all Ex's Auxillary 11/25/2024 4:00 PM Auxillary Rows Wgt Set 1 45 Rows Reps Set 1 0 Rows Wgt Set 2 45 Rows Reps Set 2 0 Lats Wgt Set 1 45 Lats Reps Set 1 0 Lats Wgt Set 2 45 Lats Reps Set 2 0 Shrug Wgt Set 1 8 Shrug Reps Set 1 0 Shrug Wgt Set 2 8 Shrug Reps Set 2 0 Therapeutic Activities (0 min): Not performed today. Patient Education: Patient was instructed in pain/time scale and correlation of strength and function to increase their understanding of the benefits related to completing the [facility] program Reminders to push to full fatigue to build strength to muscles & see better improvements to Sx's as program progresses forward.Pt ed on 4 components of program: strength/endurance training, postural awareness, body mechanics training, and strength maintenance. Assessment: Pt nicolette 1st increase to C-Roto without ill effects, Pt had good understanding of POC forrehab today & pt follows VC's well. Pt had good pace with reps without VC's from ASSISTANT PROFESSOR OF MATHEMATICS this Rx. Pt had no aggravation of Sx's during or after workout today. Pt changed what side she slept on over the past 2 nights & has not had as much trouble with pain or sleeping through night. pt will benefit from further supervised therapy to achieve goals for increased spinal strength and daily function and is expected to continue to make progress towards goals through strengthening of the spinal muscles, promoting increased functional mobility and spinal stability. Goals: HEP/Independent Management: Demonstrate independence with HEP and self- management following each treatment session ADL's: Perform home management tasks with ease in 10 weeks. Ambulation: Ambulate for 30 minutes without increased symptoms in 10 weeks. Sports/Leisure: Return to prior level of leisure or recreational activities, including bike riding and working out at the [facility] without an increase in symptoms or limitations in 12 weeks HEP Access Code: [email or web address] Anticipated visits to d/c: 13- Precautions/Other Information: None Recommendations/Communication: Next Rx 100% Cext for 2 sets with appropriate increase, 80% T-Roto & 60% C-Roto as well. Check to see if pt was able to find out where she would get [facility] Code to Space Pencil, Total timed code min: 35 Total treatment time: 35 Justin Aquino, ASSISTANT PROFESSOR OF MATHEMATICS 11/25/2024, 5:40 PM LATHE MACHINIST documented in this encounter Plan of Treatment Upcoming Encounters Date Type Department Care Team (Late st Contact Info) Description 12/06/2024 1:45 PM CNC LATHE MACHINIST Appointment Physical Therapy at [facility] Physical [facility] [address] [place] [address] Justin Aquino, ASSISTANT PROFESSOR OF MATHEMATICS [address] [place] , [facility] [address] [place], [place] 12/09/2024 1:45 PM CNC LATHE MACHINIST Appointment Physical Therapy at [facility] Physical [facility] [address] [place] [address] Remy Briseno, ASSISTANT PROFESSOR OF MATHEMATICS [address] [facility] [address] [place] [address] 12/14/2024 1:45 PM CNC LATHE MACHINIST Appointment Physical Therapy at [facility] Physical [facility] [address] [place] [address] Miguel Choi, PT [address] [place] [address] 12/17/2024 4:15 PM CNC LATHE MACHINIST Appointment Physical Therapy at [facility] Physical [facility] [address] [place] [address] Remy Briseno, ASSISTANT PROFESSOR OF MATHEMATICS [address] [facility] [address] [place] [address] 12/20/2024 1:45 PM CNC LATHE MACHINIST Appointment Physical Therapy at [facility] Physical [facility] [address] [place] [address] John Jansen, ASSISTANT PROFESSOR OF MATHEMATICS [address] [address], [facility] [address] [place] [address] 12/23/2024 1:45 PM CNC LATHE MACHINIST Appointment Physical Therapy at [facility] Physical [address] [address] Justin Aquino, ASSISTANT PROFESSOR OF MATHEMATICS [address], [place] [address] 12/23/2024 3:00 PM CNC LATHE MACHINIST Appointment [facility] [address] [place] [address] Clarke Ivory 12/27/2024 1:45 PM CNC LATHE MACHINIST Appointment Physical Therapy at [facility] Physical [address] [address] Justin Aquino, ASSISTANT PROFESSOR OF MATHEMATICS [address] [place] 12/30/2024 1:45 PM CNC LATHE MACHINIST Appointment Physical Therapy at [facility] Physical [place] [address] [place] [address] Justin Aquino, ASSISTANT PROFESSOR OF MATHEMATICS [address] [place] 01/06/2025 1:45 PM CNC LATHE MACHINIST Appointment Physical Therapy at [facility] Physical [address] [address] Justin Aquino, ASSISTANT PROFESSOR OF MATHEMATICS [address] [place] documented as of this encounter Visit Diagnoses Diagnosis Neck pain- Primary Cervicalgia documented in this encounter Care Teams Shank Scourer Relationship Specialty Start Date End Date Zuleyma Villanueva DO [address] [place] [address] PCP - General Family Practice 11/22/24 documented as of this encounter
--- OUTSIDE RECORDS SUMMARY | 2024-12-04 16:34 | XMS_ITS | Encounter Summary ---
Author Organization [facility] Address [address] [place] [address] Care Team Providers Care Sawyer Helper Name Role Phone Unassigned, Provider Primary Care Provider Unava ilable Reason for Visit * Reason Comments Neck Pain * Therapies (Routine) - New Request Specialty Diagnoses / Procedures Referred By Ulisses dotson Referred To Contact Physical Therapy Diagnoses Cervicalgia Other chronic pain Procedures [place] [address] [place] [address] [facility] Physical Therapy [address] [facility] [place] [address] Referral ID Status Reason Start Date Expiration Date V isits Requested Visits Authorized [id number] New Request 10/21/2024 01/20/2026 [id number] Encounter Details Date Type Department Care Team (Late st Contact Info) Description 11/02/2024 3:15 PM AMUSEMENT MACHINE MECHANIC Therapy Physical Therapy at [facility] Physical Therapy [facility] [place] [address] [place], [place] [address] Remy Briseno, MINISTER ASSISTANT [address] [place], [place] [id number] Neck pain (Primary Dx) Social History Tobacco [...] this encounter Progress Notes * Remy Briseno, MINISTER ASSISTANT - 11/02/2024 3:15 PM CST Images from the original note were not included. 11/02/2024 Visit # 2 Protocol: Neck Start: 3:15pm End: 3:50pm (MINISTER ASSISTANT Visit # 1 Subjective: Pt reports the neck and back have been pretty sore since last week due to sleeping in arecliner. Cervical 11/02/2024 3:15 PM Cervical Set 1 Ext % Max 60 Set 1 Ext ROM 6-90 Set 1 Ext Wgt 90 Objective Tests & Measures: Tests performed today (see reviewflowsheet for score and outcomes): : None Performed Today Warm Up: Movement Specific Training: Not Completed none today ICE: na Lumbar No data to display Therapeutic Exercise (40 min): Patient performed isolated torso rotation exercise, isolated cervical extension exercise and auxiliary exercises to improve muscle strength, to improve muscle endurance, increase strength and endurance levels of supporting spinal muscle groups and to strengthen postural muscles to decrease stresseson the spine to increase tolerance for goals listed below. Verbal cues instructed in proper form and control on Cervical Extension machine to avoid substitution and momentum. Verbal cues for proper form and control on Thoracic Rotation with instruction for isolating obliques and reducing substitution with upper extremity/neck muscles. Cues for slow speed for increased muscle fiber recruitment. Neuromuscular Re-Education (0 min): None performed today. Auxillary 11/02/2024 3:15 PM Auxillary Rows Wgt Set 1 45 Rows Reps Set 1 20 Rows Wgt Set 2 45 Rows Reps Set 2 20 Lats Wgt Set 1 45 Lats Reps Set 1 20 Shrug Wgt Set 1 8 Shrug Reps Set 1 20 Shrug Wgt Set 2 8 Shrug Reps Set 2 20 Therapeutic Activities (0 min): [...] well with good fatigue and challenge. Patient was set up on the medx machines for the first time day. We were unable to start Torso rotation today due to increase in LBP. Patient did well with all auxiliary machines today. Patient would continue to benefit from skilled [...] bike riding and working out at the [facility] without an increase in symptoms or limitations in 12 weeks HEP Access Code: [email or web address] PT Frequency/Duration: 0-2 x/week for 10-12 weeks for a total of 20-24 visits Visit -23 Barriers to Learning: none Rehab Prognosis: Excellent Recommendations/Communication: 70% cervical rotation a Continue treatment per PT POC. Total timed code min: 40 Total treatment time: 40 Remy Briseno PTA 11/01/2024, 3:52 PM EMENT MACHINE MECHANIC documented in this encounter Plan of Treatment Upcoming Encounters Date Type Department Care Team (Late st Contact Info) Description 12/06/2024 1:45 PM AMUSEMENT MACHINE MECHANIC Appointment Physical Therapy at [facility] Physical [facility] [address] [place] [address] Justin Aquino, MINISTER ASSISTANT [address] [facility] [address] [place], [place] 12/09/2024 1:45 PM AMUSEMENT MACHINE MECHANIC Appointment Physical Therapy at [facility] Physical [facility] [address] [place] [address] Remy Briseno MINISTER ASSISTANT [address] [place] [address] 12/14/2024 1:45 PM AMUSEMENT MACHINE MECHANIC Appointment Physical Therapy at [facility] Physical [facility] [address] [place] [address] Miguel Choi, PT [address] [facility] [place] [address] 12/17/2024 4:15 PM AMUSEMENT MACHINE MECHANIC Appointment Physical Therapy at [facility] Physical [facility] [address] [place] [address] Remy Briseno, MINISTER ASSISTANT [address] [place] [address] 12/20/2024 1:45 PM AMUSEMENT MACHINE MECHANIC Appointment Physical Therapy at [facility] Physical [facility] [address] [place] [address] John Jansen, MINISTER ASSISTANT [address] [place] [address] 12/23/2024 1:45 PM AMUSEMENT MACHINE MECHANIC Appointment Physical Therapy at [facility] Physical [facility] [address] [place] [address] Justin Aquino, MINISTER ASSISTANT [address] [place], [place] 12/23/2024 3:00 PM AMUSEMENT MACHINE MECHANIC Appointment [facility] [address] [place] [address] Clarke Ivory 12/27/2024 1:45 PM AMUSEMENT MACHINE MECHANIC Appointment Physical Therapy at [facility] Physical [facility] [address] [place] [address] Justin Aquino, MINISTER ASSISTANT [address] [facility] [address] [place], [place] 12/30/2024 1:45 PM AMUSEMENT MACHINE MECHANIC Appointment Physical Therapy at [facility] Physical [facility] [address] [place] [address] Justin Aquino, MINISTER ASSISTANT [address] [place] 01/06/2025 1:45 PM AMUSEMENT MACHINE MECHANIC Appointment Physical Therapy at [facility] Physical Therapy [address] [address] Justin Aquino, MINISTER ASSISTANT [address] [place] documented as of this encounter Visit Diagnoses Diagnosis Neck pain- Primary Cervicalgia documented in this encounter Care Teams Sawyer Helper Relationship Specialty Start Date End Date Unassigned, Provider [address] [place] [address] PCP - General 09/24/10 11/21/24 documented as of this encounter
--- OUTSIDE RECORDS SUMMARY | 2024-12-04 16:34 | XMS_ITS | Encounter Summary ---
Author Organization [facility] Address [address] [place] [address] Care Team Providers Care Forestry Instructor Name Role Phone Zuleyma Villanueva DO Primary Care Provider [phone] Reason for Visit * Reason Comments NECK PAIN Encounter Details Date Type Department Care Team (Late st Contact Info) Description 12/01/2024 2:15 PM MAINTENANCE AND UTILITIES SUPERVISOR Therapy Physical Therapy at [facility] Physical Therapy [place] [address] [place], [place] [phone] Derek Aldana, COUNSELING CENTER MANAGER [address] [place] [address] Neck pain (Primary Dx) Social History Tobacco Use Types Packs/Day Years Used Date Smoking Tobacco: Never Alcohol Use Standard Drinks/Week Comments No 0 (1 standard drink = 0.6 oz pur e alcohol) Sex and Gender Information Value Date Recorded Sex Assigned at Not on file Gender Identity Not on file Sexual Orientation Not on file documented as of this encounter Progress Notes * Derek Aldana PTA - 12/01/2024 2:15 PM CST 12/01/2024 Visit # 7 Protocol: Neck Start: 2:16PM End: 3:00PM (COUNSELING CENTER MANAGER Visit # 4 (PT not available for cosign) Subjective: Pt reports had a lot of pain in neck, rhomboids, and around both lats yesterday. Had a lot of negative events yesterday that caused mental stress. Cervical 12/01/2024 2:15 PM Cervical Set 1 Ext % Max 100% Set 1 Ext ROM 6-90 Set 1 Ext Wgt 210 Set 1 Ext Reps 18 Set 1 Ext Tul 144 Set 1 Ext Deep RPE 8-9 (ROM decreasing) Set 2 Ext % Max 90% Set 2 Ext ROM 6-90 Set 2 Ext Wgt 189 Set 2 Ext Reps 16 Set 2 Ext Tul 117 Set 2 Ext Deep RPE 8-9 Left Rot % Max 60% Left Rot ROM 42 Left Rot Wgt 30 Left Rot Reps 25 Left Rot Deep RPE 3 Right Rot % Max 60% Right Rot ROM 42 Right Rot Wgt 30 Right Rot Reps 25 Right Rot Deep RPE 3 Objective Tests & Measures: Increased cervical extension weight by approximately 10% from last heavy day. Increased cervical rotation weight by approximately 10% from last light day. Increased thoracic rotation weight by approximately 10% from last heavy day. Tests performed today (see [facility] for score and outcomes): : None Performed Today Warm Up: Movement Specific Training: Not Completed Bike: Minutes 10 Intensity mod ICE: none Lumbar 12/01/2024 2:15 PM Lumbar & Torso Left Rot % Max 100% Left Rot ROM 35 Left Rot Wgt 30 Left Rot Reps 30 Left Rot Zelda RPE 5 Right Rot % Max 100% Right Rot ROM 35 Right Rot Wgt 30 Right Rot Reps 30 Right Rot Deep RPE 5 Therapeutic Exercise (35 min): Patient performed isolated cervical extension exercise, [...] for increased muscle fiber recruitment. Neuromuscular Re-Education (9 min): Patient performed isolated cervical rotation to [...] hard and to help avoid headaches. Auxillary 12/01/2024 2:15 PM Auxillary Rows Wgt Set 1 50 Rows Reps Set 1 30 HEP Reviewed hold length for doorway pec stretch. Reviewed shoulder ER with yellow band. Therapeutic Activities (0 min): Not performed today. Patient Education: Patient was instructed in correlation of strength and function to increase their understanding of the benefits related to completing the [facility] Neck and Back program Takes time for strengthening to lead to functional changes. Links between mental stress and pain. Assessment: Reyna Jensen was highly challenged by cervical extension today with a 10% increase toweight. Reduced weight on 2nd set to allow patient to complete more reps. Good tolerance to cervical rotation, was able to increase ROM by 6 degrees each direction without aggravation of symptoms, indicating increased cervical mobility. Patient was noticeably guarded when getting into position for thoracic rotation, but noted that tightness decreased with more reps. Patient shows good motivation to continue strengthening and is receptive to cues for form. Patient expected to make progress towards goals through strengthening [...] bike riding and working out at the [facility] without an increase in symptoms or limitations in 12 weeks HEP Access Code: [email or web address] Anticipated visits to d/c: 12-18 Precautions/Other Information: None Recommendations/Communication: 60% Cervical extension, 100% cervical rotation, and 60% thoracic rotation next. Continue treatment per PT POC. Total timed code min: 44 Total treatment time: 44 Derek Aldana PTA 12/01/2024, 3:12 PM TENANCE AND UTILITIES SUPERVISOR documented in this encounter Plan of Treatment Upcoming Encounters Date Type Department Care Team (Late st Contact Info) Description 12/06/2024 1:45 PM MAINTENANCE AND UTILITIES SUPERVISOR Appointment Physical Therapy at [facility] Physical Therapy [facility] [address] [place], [place] [address] Justin Aquino, COUNSELING CENTER MANAGER [address] [place] , [address] [place] 12/09/2024 1:45 PM MAINTENANCE AND UTILITIES SUPERVISOR Appointment Physical Therapy at [facility] Physical [facility] [address] [place] [address] Remy Briseno, COUNSELING CENTER MANAGER [address] [facility] [address] [place] [address] 12/14/2024 1:45 PM MAINTENANCE AND UTILITIES SUPERVISOR Appointment Physical Therapy at [facility] Physical [facility] [address] [place] [address] Miguel Choi, PT [address] [place] [address] 12/17/2024 4:15 PM MAINTENANCE AND UTILITIES SUPERVISOR Appointment Physical Therapy at [facility] Physical [facility] [address] [place] [address] Remy Briseno, COUNSELING CENTER MANAGER [address] [facility] [address] [place] [address] 12/20/2024 1:45 PM MAINTENANCE AND UTILITIES SUPERVISOR Appointment Physical Therapy at [facility] Physical [facility] [address] [place] [address] John Jansen, COUNSELING CENTER MANAGER [address] [address], [facility] [address] [place] [address] 12/23/2024 1:45 PM MAINTENANCE AND UTILITIES SUPERVISOR Appointment Physical Therapy at [facility] Physical [facility] [address] [place] [address] Justin Aquino, COUNSELING CENTER MANAGER [address] [place] , [facility] [address] [place] 12/23/2024 3:00 PM MAINTENANCE AND UTILITIES SUPERVISOR Appointment [facility] [address] [place] [address] Clarke Ivory 12/27/2024 1:45 PM MAINTENANCE AND UTILITIES SUPERVISOR Appointment Physical Therapy at [facility] Physical [address] [address] Justin Aquino, COUNSELING CENTER MANAGER [address], [address] [place] 12/30/2024 1:45 PM MAINTENANCE AND UTILITIES SUPERVISOR Appointment Physical Therapy at [facility] Physical [address] [address] Justin Aquino, COUNSELING CENTER MANAGER [address] [place] 01/06/2025 1:45 PM MAINTENANCE AND UTILITIES SUPERVISOR Appointment Physical Therapy at [facility] Physical [address] [address] Justin Aquino, COUNSELING CENTER MANAGER [address], [address] [place] documented as of this encounter Visit Diagnoses Diagnosis Neck pain- Primary Cervicalgia documented in this encounter Care Teams Forestry Instructor Relationship Specialty Start Date End Date Zuleyma Villanueva DO [address] [place] [address] PCP - General Family Practice 11/22/24 documented as of this encounter
[2024-12-04 16:35] VITALS: BP 130/73; PULSE 113; RESP 18; TEMP 36.6; O2SAT 99; BMI 30.1
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
--- OUTSIDE RECORDS SUMMARY | 2024-12-04 18:10 | XMS_ITS | Continuity of Care Document ---
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 Medication Details Route Status Patient Instructions Prescription Expires Prescription Number Last Dispense Date Ordering Provider Order Date Order Qty Source ALLOPURINOL (allopurino l), 300 MG, TABLET, ORAL, [facility], 500 ea. BOTTLE Active [id number] 4 2023 90 Pharmac y Data Transac tion Service Facilit y AMPHETAMINE SALT COMBO (DEXTROAMPH ETAMINE/AMP HETAMINE), 20 MG, TABLET, ORAL, LONG, 100 ea. BOTTLE Cancele d [id number] : 2023 0 Pharmac y Data Transac tion Service Facilit y AMPHETAMINE SALT COMBO (DEXTROAMPH ETAMINE/AMP HETAMINE), 20 MG, TABLET, ORAL, LONG, 100 ea. BOTTLE Active [id number] 4 2023 30 Pharmac y Data Transac tion Service Facilit y AMPHETAMINE SALT COMBO (DEXTROAMPH ETAMINE/AMP HETAMINE), 5 MG, TABLET, ORAL, LONG, 100 ea. BOTTLE Active [id number] 4 2023 120 Pharmac y Data Transac tion Service Facilit y CLONAZEPAM (clonazepam ), 0.5 MG, TABLET, ORAL, [facility], 100 ea. BOTTLE Active [id number] 4 2023 60 Pharmac y Data Transac tion Service Facilit y CLONAZEPAM (clonazepam ), 0.5 MG, TABLET, ORAL, [facility], 100 ea. BOTTLE Active [id number] 4 2023 60 Pharmac y Data Transac tion Service Facilit y CLONAZEPAM (clonazepam ), 0.5 MG, TABLET, ORAL, [facility], 1000 ea. BOTTLE Active [id number] 4 2023 60 Pharmac y Data Transac tion Service Facilit y CLONAZEPAM (CLONAZEPAM ), 0.5MG, TABLET, ORAL, [employer] [place], 500 ea. BOTTLE Active [id number] 4 2023 60 Pharmac y Data Transac tion Service Facilit y CLONAZEPAM (CLONAZEPAM ), 0.5MG, TABLET, ORAL, [employer] [place], 500 ea. BOTTLE Active [id number] 4 2023 60 Pharmac y Data Transac tion Service Facilit y CLONAZEPAM (CLONAZEPAM ), 0.5MG, TABLET, ORAL, [employer] [place], 500 ea. BOTTLE Active [id number] 3 2022 60 Pharmac y Data Transac tion Service Facilit y DESVENLAFAX INE SUCCINATE ER (desvenlafa xine succinate), 100 MG, TAB ER 24H, ORAL, [facility] IKMA, 90 ea. BOTTLE Active [id number] 4 2023 90 Pharmac y Data Transac tion Service Facilit y DESVENLAFAX INE SUCCINATE ER (desvenlafa xine succinate), 100 MG, TAB ER 24H, ORAL, [facility]/ IKMA, 90 ea. BOTTLE Active [id number] 4 2023 90 Pharmac y Data Transac tion Service Facilit y FLUOXETINE HCL (FLUOXETINE HCL), 20MG, CAPSULE, ORAL, [employer], 100 ea. BOTTLE Cancele d [id number] : 2023 0 Pharmac y Data Transac tion Service Facilit y FLUOXETINE HCL (FLUOXETINE HCL), 20MG, CAPSULE, ORAL, [employer], 100 ea. BOTTLE Active [id number] 4 2023 10 Pharmac y Data Transac tion Service Facilit y FLUOXETINE HCL (FLUOXETINE HCL), 20MG, CAPSULE, ORAL, [employer], 100 ea. BOTTLE Cancele d [id number] : 2023 0 Pharmac y Data Transac tion Service Facilit y FLUOXETINE HCL (FLUOXETINE HCL), 40MG, CAPSULE, ORAL, [employer] [place], 100 ea. BOTTLE Active [id number] 4 2023 180 Pharmac y Data Transac tion Service Facilit y FLUOXETINE HCL (FLUOXETINE HCL), 40MG, CAPSULE, ORAL, [employer] [place], 100 ea. BOTTLE Active [id number] 4 2023 180 Pharmac y Data Transac tion Service Facilit y METOPROLOL SUCCINATE (metoprolol succinate), 25 MG, TAB ER 24H, ORAL, [employer]/TEV A, 100 ea. BOTTLE Active [id number] 4 2023 90 Pharmac y Data Transac tion Service Facilit y Social History Combined list of available smoking, tobacco, and other social history from Department of Defense and Veterans Affairs facilities. Social History Type Response Date Comment [facility] e This section is an empty social history section. DoD
--- OUTSIDE RECORDS SUMMARY | 2024-12-04 18:10 | XMS_ITS | Continuity of Care Document ---
Author Name [facility] Address Unknown Organization Unknown Address Unknown Encounters FILTER APPLIED:Only known Encounters with Admission Date within the last 5 years Encounter Location Admission Discharge Billing Code [employer] [facility] Out[facility] [id number] [facility] Out[facility] [id number]
[2024-12-04] MEDS: hydrOXYzine pamoate 25 MG CAPSULE PO (18:52)
== END 2024-12-04 18:19 | disposition home or self-care (01) ==
PROVIDERS: Emergency Provider Family Medicine
DX: S39.012A Strain of muscle, fascia and tendon of lower back, initial encounter (principal); M25.562 Pain in left knee; F41.9 Anxiety disorder, unspecified; V49.9XXA Car occupant (driver) (passenger) injured in unspecified traffic accident, initial encounter
CPT/HCPCS: 73562; 99283; 99284; A9270